=== PATIENT | male | born 1940 | race Caucasian/White ===

== ENCOUNTER 2017-06-18 06:20 | Emergency (ER) | payer OTHER ==
[~2017-06-18] VITALS: Ht 188 cm; Wt 71.8 kg
[~2017-06-18 06:20] MED LIST: /PANT40TA OR; ASPI81TA63 OR; BISA10SU2 RE; CALCCHW12 OR; FISH500C OR; FLAG500T PO; IMODIUM PO; LISI10TA4 OR; MAGNESIUM PO; MULTIVIT PO; RED YEAST RICE PO; VITAD1000T PO; VITAMIN B COMPLE1 OR
[2017-06-18] MEDS ORDERED: METO1TAB87 PO (06:37)
[2017-06-18] MEDS ORDERED: FLOM5CAP PO (06:37)
[2017-06-18] MEDS ORDERED: NAPR500T3 PO (06:56)
[2017-06-18 07:31] VITALS: BP 160/78
--- NOTE | 2017-06-18 07:52 | REP ---
Left shoulder three views : There is no fracture or dislocation. Mineralization and joint spaces are normal. There are no calcifications or foreign bodies. Impression: Negative whole left shoulder . Signed by Ken Schaefer MD 06/18/2017 07:43 A
== END 2017-06-18 07:32 | disposition home or self-care (01) ==
LOC: M ED 06:20
DX: S40.012A Contusion of left shoulder, initial encounter (principal); W10.9XXA Fall (on) (from) unspecified stairs and steps, initial encounter; Y92.099 Unspecified place in other non-institutional residence as the place of occurrence of the external cause; Y93.89 Activity, other specified; Y99.9 Unspecified external cause status; Z79.82 Long term (current) use of aspirin; Z79.899 Other long term (current) drug therapy; Z91.012 Allergy to eggs; F17.200 Nicotine dependence, unspecified, uncomplicated; E78.00 Pure hypercholesterolemia, unspecified; I10 Essential (primary) hypertension; K57.90 Diverticulosis of intestine, part unspecified, without perforation or abscess without bleeding; Z87.442 Personal history of urinary calculi; E11.9 Type 2 diabetes mellitus without complications; M79.9 Soft tissue disorder, unspecified

== ENCOUNTER → 2017-10-11 | Outpatient (REF) | payer OTHER | LOC: M LAB REF 15:21 | DX: L08.9 Local infection of the skin and subcutaneous tissue, unspecified (principal) | CPT/HCPCS: 87186 ==

== ENCOUNTER 2018-03-20 22:39 | Emergency (ER) | payer OTHER ==
[2018-03-20] MEDS: cloNIDine 0.2 MG TAB PO (23:20)
[2018-03-20 23:30] LABS: BASO # 0.1 10^3/uL (0.0-0.2); EOS # 0.1 10^3/uL (0.0-0.50); EOS % 2.2 % (0.0-3.0); HEMATOCRIT 40.3 % (42.0-52.0); HEMOGLOBIN 13.2 g/dl (13.5-17.5); IMMATURE GRANULOCYTE % 0.3 % (0-3.0); LYMPH # 1.2 10^3/uL (1.5-4.5); LYMPH % 19.7 % (24.0-44.0); MEAN CORPUSCULAR HEMOGLOBIN 29.8 pg (27.0-33.0); MEAN CORPUSCULAR HGB CONC 32.8 g/dl (32.0-36.5); MONO # 0.7 10^3/uL (0.0-0.8); MONO % 11.8 % (0.0-5.0); NEUTROPHILS # 3.9 10^3/uL (1.8-7.7); PLATELET COUNT, AUTOMATED 198 10^3/uL (150-450); RED BLOOD COUNT 4.43 10^6/uL (4.30-6.10); RED CELL DISTRIBUTION WIDTH 13.2 % (11.5-14.5)
[2018-03-20 23:57] LABS: ANION GAP 6 MEQ/L (8-16); BLOOD UREA NITROGEN 21 MG/DL (7-18); CALCIUM LEVEL 8.9 MG/DL (8.8-10.2); CARBON DIOXIDE LEVEL 31 MEQ/L (21-32); CHLORIDE LEVEL 106 MEQ/L (98-107); CREATININE FOR GFR 1.11 MG/DL (0.70-1.30); GLOMERULAR FILTRATION RATE > 60.0 (>42); GLUCOSE, FASTING 189 MG/DL (70-100); POTASSIUM SERUM 4.4 MEQ/L (3.5-5.1); SODIUM LEVEL 143 MEQ/L (136-145)
== END 2018-03-21 01:16 | disposition home or self-care (01) ==
LOC: M ED 22:39
DX: I10 Essential (primary) hypertension (principal); I71.4 Abdominal aortic aneurysm, without rupture; Z91.012 Allergy to eggs; Z79.82 Long term (current) use of aspirin; Z79.899 Other long term (current) drug therapy
CPT/HCPCS: 76775

== ENCOUNTER → 2018-03-21 | Outpatient (CLI) | payer OTHER | LOC: M RAD 15:50 | DX: I71.4 Abdominal aortic aneurysm, without rupture (principal) ==

== ENCOUNTER 2018-04-04 13:15 | Outpatient (RCR) | payer OTHER | END 2018-04-22 | disposition home or self-care (01) | LOC: M PT 13:15 → M OT 04-13 11:17 → M ST 04-20 12:45 → M OT 04-06 13:45 → M ST 04-20 12:45 → M OT 04-06 13:45 → M PT 13:15 → M OT 04-06 13:45 | DX: Z51.89 Encounter for other specified aftercare (principal); I63.9 Cerebral infarction, unspecified; I69.128 Other speech and language deficits following nontraumatic intracerebral hemorrhage | CPT/HCPCS: 97110 ==

== ENCOUNTER → 2018-04-04 | Outpatient (CLI) | payer OTHER ==
[2018-04-04 17:24] LABS: THYROGLOBULIN ANTIBODY 25.9 U/ML (<60.0); TOTAL T3 99.3 NG/DL (60.0-181.0)
[2018-04-04 17:29] LABS: FREE T4 1.07 NG/DL (0.76-1.46); THYROID STIMULATING HORMONE 0.636 uIU/ML (0.358-3.740)
[2018-04-04 22:12] LABS: THYROID PEROXIDASE ANTIBODY 29.8 U/ML (<60.0)
[2018-04-11 14:19] LABS: METANEPHRINE PLASMA 81 pg/mL (0-62); NORMETANEPHRINE PLASMA 176 pg/mL (0-145)
== END ==
LOC: M LAB 16:00
DX: E05.40 Thyrotoxicosis factitia without thyrotoxic crisis or storm (principal)
CPT/HCPCS: 84443

== ENCOUNTER 2018-04-26 12:49 | Outpatient (RCR) | payer OTHER | END 2018-05-22 | LOC: M ST 12:49 → M PT 05-05 12:35 → M ST 05-10 13:30 → M PT 05-12 13:36 → M ST 12:49 → M OT 05-03 12:13 → M PT 05-05 12:35 → M ST 05-10 13:30 → M PT 05-12 13:36 → M ST 12:49 → M OT 05-03 12:13 → M PT 05-05 12:35 | DX: Z51.89 Encounter for other specified aftercare (principal); I63.9 Cerebral infarction, unspecified | CPT/HCPCS: 97110 ==

== ENCOUNTER → 2018-05-03 | Outpatient (CLI) | payer OTHER | LOC: M ST 11:29 | DX: R13.10 Dysphagia, unspecified (principal) | CPT/HCPCS: 74230 ==

== ENCOUNTER 2018-05-24 09:34 | Outpatient (RCR) | payer OTHER | END 2018-06-22 | LOC: M PT 09:34 | DX: I63.9 Cerebral infarction, unspecified (principal) | CPT/HCPCS: 97110 ==

== ENCOUNTER 2018-06-14 17:14 | Emergency (ER) | payer OTHER ==
[2018-06-14 14:51] LABS: BASO # 0.1 10^3/uL (0.0-0.2); BASO % 0.7 % (0.0-1.0); EOS # 0.1 10^3/uL (0.0-0.50); EOS % 0.8 % (0.0-3.0); HEMATOCRIT 39.9 % (42.0-52.0); HEMOGLOBIN 13.3 g/dl (13.5-17.5); IMMATURE GRANULOCYTE % 0.5 % (0-3.0); LYMPH # 1.7 10^3/uL (1.5-4.5); LYMPH % 20.6 % (24.0-44.0); MEAN CORPUSCULAR HEMOGLOBIN 30.1 pg (27.0-33.0); MEAN CORPUSCULAR HGB CONC 33.3 g/dl (32.0-36.5); MEAN CORPUSCULAR VOLUME 90.3 fl (80.0-96.0); MONO # 0.8 10^3/uL (0.0-0.8); MONO % 8.9 % (0.0-5.0); NEUTROPHILS # 5.8 10^3/uL (1.8-7.7); NEUTROPHILS % 68.5 % (36.0-66.0); PLATELET COUNT, AUTOMATED 251 10^3/uL (150-450); RED BLOOD COUNT 4.42 10^6/uL (4.30-6.10); RED CELL DISTRIBUTION WIDTH 13.2 % (11.5-14.5); WHITE BLOOD COUNT 8.4 10^3/uL (4.0-10.0)
[2018-06-14 14:53] LABS: VENOUS BASE EXCESS -1.1 (-2.0-2.0); VENOUS O2 SATURATION 97.1 % (60.0-80.0); VENOUS PARTIAL PRESSURE O2 92.2 mmHg (30.0-50.0); VENOUS PH 7.412 UNITS (7.330-7.430); VENOUS STANDARD HCO3 23.5 MEQ/L; VENOUS TOTAL CO2 24.2 MEQ/L (24.0-28.0)
[2018-06-14 15:01] LABS: INR 1.02; PROTHROMBIN TIME 13.5 SECONDS (12.1-14.4)
[2018-06-14] MEDS: NS 1,000 ML IV ×2 (15:39→18:29)
[2018-06-14 15:50] LABS: BLOOD UREA NITROGEN 30 MG/DL (7-18)
[2018-06-14 15:51] LABS: ANION GAP 8 MEQ/L (8-16); CALCIUM LEVEL 8.9 MG/DL (8.8-10.2); CARBON DIOXIDE LEVEL 26 MEQ/L (21-32); CHLORIDE LEVEL 106 MEQ/L (98-107); CK-MB VALUE MASS 1.2 NG/ML (<3.6); CPK CREATINE PHOSPHOKINASE 66 U/L (39-308); CREATININE FOR GFR 1.15 MG/DL (0.70-1.30); GLOMERULAR FILTRATION RATE > 60.0 (>42); GLUCOSE, FASTING 156 MG/DL (70-100); MAGNESIUM LEVEL 2.1 MG/DL (1.8-2.4); MB/CK RELATIVE INDEX 1.81 (< OR =4); POTASSIUM SERUM 4.2 MEQ/L (3.5-5.1); SODIUM LEVEL 140 MEQ/L (136-145); TROPONIN I < 0.02 NG/ML (< 0.10)
[2018-06-17 14:12] LABS: BEDSIDE GLUCOSE 176 MG/DL (83-110)
== END 2018-06-14 20:17 | disposition home or self-care (01) ==
LOC: M ED 17:14
DX: I95.1 Orthostatic hypotension (principal); R73.03 Prediabetes; I10 Essential (primary) hypertension; Z86.79 Personal history of other diseases of the circulatory system; Z87.19 Personal history of other diseases of the digestive system; Z79.899 Other long term (current) drug therapy; Z91.012 Allergy to eggs
CPT/HCPCS: 71045

== ENCOUNTER → 2020-03-26 | Emergency (ER) | payer MEDICARE, OTHER ==
[~2020-03-26] MED LIST changes: -/PANT40TA OR; +FLOM0.4C39 PO; +METO1TAB87 PO; +NAPR-885 PO; +PROT1TAB2 OR
== END | disposition home or self-care (01) ==
LOC: M ED 20:57
DX: R33.9 Retention of urine, unspecified (principal); I10 Essential (primary) hypertension; Z86.73 Personal history of transient ischemic attack (TIA), and cerebral infarction without residual deficits; Z91.012 Allergy to eggs; Z79.02 Long term (current) use of antithrombotics/antiplatelets; Z79.899 Other long term (current) drug therapy

== ENCOUNTER 2022-04-25 17:39 | Inpatient (IN) | payer MEDICARE ==
[~2022-04-25] VITALS: Ht 188 cm; Wt 80.3 kg
[2022-04-25] MEDS ORDERED: CLOP75TA2 PO (17:53)
[2022-04-25] MEDS ORDERED: CITRTAB18 PO (17:53)
[2022-04-25] MEDS ORDERED: ISOVUE-370 76% 100ML VIAL As Ordered ONE (18:48)
[2022-04-25 19:07] LABS: BASO # 0.1 10^3/uL (0.0-0.2); BASO % 0.4 % (0.0-1.0); EOS % 0.1 % (0.0-3.0); HEMATOCRIT 44.7 % (42.0-52.0); LYMPH # 0.7 10^3/uL (1.5-5.0); LYMPH % 4.2 % (24.0-44.0); MEAN CORPUSCULAR HEMOGLOBIN 29.3 pg (27.0-33.0); MEAN CORPUSCULAR HGB CONC 33.6 g/dl (32.0-36.5); MEAN CORPUSCULAR VOLUME 87.3 fl (80.0-96.0); MONO # 1.2 10^3/uL (0.0-0.8); MONO % 7.3 % (2.0-8.0); NEUTROPHILS # 14.1 10^3/uL (1.5-8.5); NEUTROPHILS % 87.4 % (36.0-66.0); PLATELET COUNT, AUTOMATED 329 10^3/uL (150-450); RED BLOOD COUNT 5.12 10^6/uL (4.30-6.10); WHITE BLOOD COUNT 16.1 10^3/uL (4.0-10.0)
[2022-04-25] MEDS ORDERED: hydrALAZINE 20MG/ML 1ML VIAL (J0360 PER 20MG) IV STA (19:28)
[2022-04-25 19:35] LABS: INR 0.96; PARTIAL THROMBOPLASTIN TIME 33.9 SECONDS (25.9-37.0); PROTHROMBIN TIME 13.1 SECONDS (12.7-14.5)
[2022-04-25 19:52] LABS: ALBUMIN 4.2 GM/DL (3.2-5.2); BILIRUBIN,DIRECT 0.2 MG/DL (0.0-0.2); BILIRUBIN,TOTAL 0.6 MG/DL (0.2-1.0); TOTAL PROTEIN 7.2 GM/DL (6.4-8.2)
[2022-04-25] MEDS ORDERED: NS 500 ML IV ONE (20:05)
[2022-04-25] MEDS ORDERED: cefTRIAXone SOD 1 GM in D5W MINI-BAG PLUS 50 ML IV ONE (20:05)
[2022-04-25 21:04] LABS: RSV AMPLIFICATION NEGATIVE (NEGATIVE)
[2022-04-25] MEDS ORDERED: METO1TAB7 PO (21:11)
[2022-04-25] MEDS ORDERED: D 1010002 PO (21:11)
[2022-04-25] MEDS ORDERED: ASPI81TA26 PO (21:11)
[2022-04-25] MEDS ORDERED: HOME MED LIST COMPLETE! XX SCH (21:15)
[2022-04-25] MEDS ORDERED: ACETAMINOPHEN 325 MG TAB PO ONE (22:05)
[2022-04-25] MEDS ORDERED: ONDANSETRON 4MG 2ML VIAL As Ordered ONE (22:23)
[2022-04-25] MEDS ORDERED: MAALOX 30 ML SUSP *UDC PO PRN (22:30)
[2022-04-25] MEDS ORDERED: GLUCAGON INJ 1MG VIAL SC PRN (22:30)
[2022-04-25] MEDS ORDERED: SODIUM CHLORIDE 0.9% 1000ML IV SCH (22:30)
[2022-04-25] MEDS ORDERED: DEXTROSE 50% 50 ML SYRINGE IV PRN (22:30)
[2022-04-25] MEDS ORDERED: ONDANSETRON 4MG 2ML VIAL IV ONE (22:30)
[2022-04-25] MEDS ORDERED: GLUCOSE 4GM CHEW TABLET PO PRN (22:30)
[2022-04-25] MEDS ORDERED: ONDANSETRON 4MG 2ML VIAL IV PRN (22:45)
[2022-04-25] MEDS ORDERED: cefTRIAXone SOD 1 GM in D5W MINI-BAG PLUS 50 ML IV SCH (23:00)
[2022-04-26] VITALS (14 sets, daily range): BP systolic 113–138; BP diastolic 56–64; O2SAT 94–98
[2022-04-26] MEDS: INSULIN LISPRO (NovoLOG) PER UNIT SC SCH ×5 (01:59→20:29)
[2022-04-26] MEDS: NS 1,000 ML IV SCH ×2 (02:22→12:20)
[2022-04-26 08:10] LABS: ALBUMIN 2.9 GM/DL (3.2-5.2); BILIRUBIN,TOTAL 0.6 MG/DL (0.2-1.0); CALCIUM LEVEL 8.7 MG/DL (8.8-10.2); CREATININE FOR GFR 1.78 MG/DL (0.70-1.30); GLOMERULAR FILTRATION RATE 39.1 (>35); POTASSIUM SERUM 3.9 MEQ/L (3.5-5.1); TOTAL PROTEIN 5.3 GM/DL (6.4-8.2)
[2022-04-26] MEDS: METOPROLOL TART 25 MG TABLET PO SCH ×2 (12:00→20:29)
[2022-04-26 12:03] LABS: HEMATOCRIT 36.1 % (42.0-52.0); HEMOGLOBIN 12.2 g/dl (13.5-17.5); MEAN CORPUSCULAR HGB CONC 33.8 g/dl (32.0-36.5); MEAN CORPUSCULAR VOLUME 88.7 fl (80.0-96.0); PLATELET COUNT, AUTOMATED 222 10^3/uL (150-450); RED BLOOD COUNT 4.07 10^6/uL (4.30-6.10)
[2022-04-26] MEDS ORDERED: ISOVUE-300 61% 50ML VIAL As Ordered ONE (12:52)
[2022-04-26] MEDS ORDERED: propofoL 200 MG/20 ML VIAL As Ordered ONE (12:57)
[2022-04-26] MEDS ORDERED: dexameTHASONE 4 MG/ML 1ML VIAL (J1100 PER 1MG) As Ordered ONE (12:57)
[2022-04-26] MEDS ORDERED: fentaNYL 100 MCG/2 ML INJECTION As Ordered ONE (12:57)
[2022-04-26] MEDS ORDERED: LIDOCAINE 2% 100MG/5ML SDV (FOR ANES.) As Ordered ONE (12:57)
[2022-04-26] MEDS ORDERED: ONDANSETRON 4MG 2ML VIAL As Ordered ONE (12:57)
[2022-04-26] MEDS ORDERED: PHENYLephrine 500MCG 5ML (100MCG/ML) SYRINGE As Ordered ONE (13:03)
[2022-04-26] MEDS ORDERED: ACETAMINOPHEN 1000MG 100ML IV BTL (OFIRMEV) (J0131 PER 10MG) As Ordered ONE (13:31)
[2022-04-26] MEDS ORDERED: ONDANSETRON 4MG 2ML VIAL IV PRN (14:15)
[2022-04-26] MEDS ORDERED: PERCOCET 5MG/325MG TAB PO PRN (14:15)
[2022-04-26] MEDS ORDERED: fentaNYL 100 MCG/2 ML INJECTION IV PRN (14:15)
[2022-04-26] MEDS ORDERED: LR 1,000 ML IV SCH (14:15)
[2022-04-26] MEDS: cefTRIAXone SOD 2 GM in D5W MINI-BAG PLUS 50 ML IV SCH (20:29)
[2022-04-26] MEDS ORDERED: HEPARIN SOD (PORCINE) 5000UNITS/ML 1ML VIAL/SYRINGE SC SCH (21:00)
[2022-04-26] MEDS ORDERED: cefTRIAXone SOD 1 GM in D5W MINI-BAG PLUS 50 ML IV SCH (21:00)
[2022-04-26] MEDS ORDERED: cefTRIAXone SOD 2 GM in D5W MINI-BAG PLUS 50 ML IV SCH (21:00)
[2022-04-26] MEDS ORDERED: LR 1,000 ML IV ONE (22:20)
[2022-04-27] VITALS: BP 118/59
[2022-04-27] MEDS: ACETAMINOPHEN TAB 650MG DOSE (2X325MG) PO PRN ×2 (02:36→20:22)
[2022-04-27 04:00] VITALS: BP 102/44
[2022-04-27 05:13] LABS: HEMATOCRIT 33.2 % (42.0-52.0); HEMOGLOBIN 10.9 g/dl (13.5-17.5); MEAN CORPUSCULAR HEMOGLOBIN 29.3 pg (27.0-33.0); MEAN CORPUSCULAR HGB CONC 32.8 g/dl (32.0-36.5); MEAN CORPUSCULAR VOLUME 89.2 fl (80.0-96.0); PLATELET COUNT, AUTOMATED 202 10^3/uL (150-450); RED BLOOD COUNT 3.72 10^6/uL (4.30-6.10); WHITE BLOOD COUNT 19.1 10^3/uL (4.0-10.0)
[2022-04-27 05:51] LABS: CALCIUM LEVEL 8.1 MG/DL (8.8-10.2); CREATININE FOR GFR 2.3 MG/DL (0.70-1.30); GLOMERULAR FILTRATION RATE 29.1 (>35); POTASSIUM SERUM 4.5 MEQ/L (3.5-5.1)
[2022-04-27 08:00] VITALS: BP 143/66
[2022-04-27] MEDS: ASPIRIN 81MG ENTERIC TABLET PO SCH (08:57)
[2022-04-27] MEDS: INSULIN LISPRO (NovoLOG) PER UNIT SC SCH ×4 (08:57→20:17)
[2022-04-27] MEDS: METOPROLOL TART 25 MG TABLET PO SCH ×2 (08:58→20:22)
[2022-04-27] MEDS: CLOPIDOGREL 75 MG TAB PO SCH (11:25)
[2022-04-27] MEDS: NS 1,000 ML IV SCH ×2 (11:26→21:53)
[2022-04-27 12:00] VITALS: BP 132/70
[2022-04-27] MEDS: HEPARIN SOD (PORCINE) 5000UNITS/ML 1ML VIAL/SYRINGE SQ SCH ×2 (13:36→20:21)
[2022-04-27 16:00] VITALS: BP 131/63
[2022-04-27 20:00] VITALS: BP 160/77
[2022-04-27] MEDS: cefTRIAXone SOD 2 GM in D5W MINI-BAG PLUS 50 ML IV SCH (20:22)
[2022-04-28] VITALS: BP 155/74
[2022-04-28 04:12] LABS: BASO # 0.1 10^3/uL (0.0-0.2); BASO % 0.5 % (0.0-1.0); EOS % 0.2 % (0.0-3.0); HEMATOCRIT 33.1 % (42.0-52.0); HEMOGLOBIN 10.8 g/dl (13.5-17.5); LYMPH # 0.8 10^3/uL (1.5-5.0); LYMPH % 6.4 % (24.0-44.0); MEAN CORPUSCULAR HGB CONC 32.6 g/dl (32.0-36.5); MONO # 0.9 10^3/uL (0.0-0.8); MONO % 7.4 % (2.0-8.0); NEUTROPHILS # 10.6 10^3/uL (1.5-8.5); NEUTROPHILS % 84.9 % (36.0-66.0); PLATELET COUNT, AUTOMATED 191 10^3/uL (150-450); RED BLOOD COUNT 3.72 10^6/uL (4.30-6.10); WHITE BLOOD COUNT 12.5 10^3/uL (4.0-10.0)
[2022-04-28 04:21] VITALS: BP 163/80
[2022-04-28 04:43] LABS: CALCIUM LEVEL 8.4 MG/DL (8.8-10.2); CREATININE FOR GFR 2.31 MG/DL (0.70-1.30); POTASSIUM SERUM 4.6 MEQ/L (3.5-5.1)
[2022-04-28] MEDS: HEPARIN SOD (PORCINE) 5000UNITS/ML 1ML VIAL/SYRINGE SQ SCH ×2 (05:27→14:00)
[2022-04-28] MEDS: NS 1,000 ML IV SCH ×2 (08:11→18:25)
[2022-04-28] MEDS ORDERED: TAMSULOSIN 0.4 MG CAP PO SCH (09:00)
[2022-04-28] MEDS ORDERED: amLODIPine 5 MG TAB PO SCH (09:00)
[2022-04-28] MEDS: ASPIRIN 81MG ENTERIC TABLET PO SCH (09:39)
[2022-04-28] MEDS: CLOPIDOGREL 75 MG TAB PO SCH (09:40)
[2022-04-28] MEDS: METOPROLOL TART 25 MG TABLET PO SCH ×2 (09:40→20:31)
[2022-04-28] MEDS: INSULIN LISPRO (NovoLOG) PER UNIT SC SCH ×4 (09:40→20:12)
[2022-04-28] MEDS ORDERED: amLODIPine 5 MG TAB PO ONE (11:00)
[2022-04-28] MEDS: HYDROMORPHONE HCL 0.5 MG/ 0.5 ML SYRINGE (J1170 PER 1) IV PRN (12:45)
[2022-04-28 16:00] VITALS: BP 148/64
[2022-04-28 17:28] LABS: CREATININE,RANDOM URINE 79.4 MG/DL
[2022-04-28] MEDS: TAMSULOSIN 0.4 MG CAP PO SCH (17:30)
[2022-04-28 19:21] VITALS: BP 167/79
[2022-04-28] MEDS: cefTRIAXone SOD 2 GM in D5W MINI-BAG PLUS 50 ML IV SCH (20:31)
[2022-04-29 00:30] VITALS: BP 154/73
[2022-04-29] MEDS: NS 1,000 ML IV SCH ×3 (03:55→23:37)
[2022-04-29 04:08] VITALS: BP 156/78
[2022-04-29 04:52] LABS: BASO # 0.1 10^3/uL (0.0-0.2); BASO % 0.5 % (0.0-1.0); EOS % 0.2 % (0.0-3.0); HEMATOCRIT 32.4 % (42.0-52.0); HEMOGLOBIN 10.8 g/dl (13.5-17.5); LYMPH # 0.8 10^3/uL (1.5-5.0); LYMPH % 8.4 % (24.0-44.0); MEAN CORPUSCULAR HEMOGLOBIN 29.5 pg (27.0-33.0); MEAN CORPUSCULAR HGB CONC 33.3 g/dl (32.0-36.5); MEAN CORPUSCULAR VOLUME 88.5 fl (80.0-96.0); MONO # 0.9 10^3/uL (0.0-0.8); NEUTROPHILS # 8.1 10^3/uL (1.5-8.5); NEUTROPHILS % 81.1 % (36.0-66.0); PLATELET COUNT, AUTOMATED 207 10^3/uL (150-450); RED BLOOD COUNT 3.66 10^6/uL (4.30-6.10)
[2022-04-29] MEDS: HYDROMORPHONE HCL 0.5 MG/ 0.5 ML SYRINGE (J1170 PER 1) IV PRN (05:16)
[2022-04-29 05:21] LABS: CALCIUM LEVEL 8.3 MG/DL (8.8-10.2); CREATININE FOR GFR 1.67 MG/DL (0.70-1.30); GLOMERULAR FILTRATION RATE 42.1 (>35); POTASSIUM SERUM 4.4 MEQ/L (3.5-5.1)
[2022-04-29 08:00] VITALS: BP 147/70
[2022-04-29 08:16] LABS: HEMOGLOBIN A1c 8.3 %
[2022-04-29] MEDS: ASPIRIN 81MG ENTERIC TABLET PO SCH (08:23)
[2022-04-29] MEDS: TAMSULOSIN 0.4 MG CAP PO SCH (08:23)
[2022-04-29] MEDS: INSULIN LISPRO (NovoLOG) PER UNIT SC SCH ×4 (08:23→20:09)
[2022-04-29] MEDS: CLOPIDOGREL 75 MG TAB PO SCH (08:24)
[2022-04-29] MEDS: METOPROLOL TART 25 MG TABLET PO SCH ×2 (08:26→20:09)
[2022-04-29] MEDS: amLODIPine 5 MG TAB PO SCH (08:26)
[2022-04-29] MEDS ORDERED: ALCOPAD25 TOP (11:39)
[2022-04-29] MEDS ORDERED: GLUC1TES2 XX (11:39)
[2022-04-29] MEDS ORDERED: LANC30MI XX (11:39)
[2022-04-29] MEDS ORDERED: CEFD300C41 PO (11:39)
[2022-04-29] MEDS ORDERED: BLOOKIT21 XX (11:39)
[2022-04-29] MEDS ORDERED: PEN1MIS21 SC (11:39)
[2022-04-29] MEDS ORDERED: FLOM0.4C39 PO (11:39)
[2022-04-29] MEDS ORDERED: LANTINJ4 SC (11:39)
[2022-04-29] MEDS ORDERED: AMLO1TAB25 PO (11:39)
[2022-04-29 12:27] VITALS: BP 159/74
[2022-04-29] MEDS: ACETAMINOPHEN TAB 650MG DOSE (2X325MG) PO PRN ×2 (12:44→20:08)
[2022-04-29 16:31] VITALS: BP 140/67
[2022-04-29 20:00] VITALS: BP 142/63
[2022-04-29] MEDS: cefTRIAXone SOD 2 GM in D5W MINI-BAG PLUS 50 ML IV SCH (20:08)
[2022-04-29] MEDS ORDERED: VANCOMYCIN HCL 1,000 MG, VIAL MATE ADAPTER 1 EACH in NS 250 ML IV SCH (21:25)
[2022-04-29] MEDS: PIPERACILLIN/TAZOBACTAM SOD 2.25 GM in D5W MINI-BAG PLUS 50 ML IV SCH (23:37)
[2022-04-30] MEDS: ACETAMINOPHEN TAB 650MG DOSE (2X325MG) PO PRN ×3 (00:28→12:32)
[2022-04-30] MEDS ORDERED: VANCOMYCIN HCL 750 MG, VIAL MATE ADAPTER 1 EACH in D5W 250 ML IV ONE ×4 (01:00)
[2022-04-30 04:00] VITALS: BP 137/61
[2022-04-30] MEDS: PIPERACILLIN/TAZOBACTAM SOD 2.25 GM in D5W MINI-BAG PLUS 50 ML IV SCH ×4 (05:02→23:05)
[2022-04-30 06:06] LABS: BASO # 0.1 10^3/uL (0.0-0.2); BASO % 0.9 % (0.0-1.0); EOS # 0.3 10^3/uL (0.0-0.5); EOS % 3.1 % (0.0-3.0); HEMATOCRIT 29.3 % (42.0-52.0); LYMPH # 0.9 10^3/uL (1.5-5.0); LYMPH % 10.3 % (24.0-44.0); MEAN CORPUSCULAR HEMOGLOBIN 29.3 pg (27.0-33.0); MEAN CORPUSCULAR HGB CONC 34.1 g/dl (32.0-36.5); MEAN CORPUSCULAR VOLUME 85.9 fl (80.0-96.0); MONO # 1.1 10^3/uL (0.0-0.8); MONO % 12.1 % (2.0-8.0); NEUTROPHILS # 6.5 10^3/uL (1.5-8.5); PLATELET COUNT, AUTOMATED 194 10^3/uL (150-450); RED BLOOD COUNT 3.41 10^6/uL (4.30-6.10)
[2022-04-30] MEDS: INSULIN LISPRO (NovoLOG) PER UNIT SC SCH ×4 (07:39→20:18)
[2022-04-30 07:55] LABS: CREATININE FOR GFR 1.31 MG/DL (0.70-1.30); GLOMERULAR FILTRATION RATE 55.8 (>35); POTASSIUM SERUM 3.6 MEQ/L (3.5-5.1)
[2022-04-30 08:00] VITALS: BP 112/70
[2022-04-30 08:03] VITALS: BP 128/58
[2022-04-30] MEDS: METOPROLOL TART 25 MG TABLET PO SCH ×2 (09:01→20:18)
[2022-04-30] MEDS: TAMSULOSIN 0.4 MG CAP PO SCH (09:01)
[2022-04-30] MEDS: ASPIRIN 81MG ENTERIC TABLET PO SCH (09:01)
[2022-04-30] MEDS: CLOPIDOGREL 75 MG TAB PO SCH (09:01)
[2022-04-30] MEDS: amLODIPine 5 MG TAB PO SCH (09:02)
[2022-04-30] MEDS ORDERED: VANCOMYCIN HCL 1,000 MG, VIAL MATE ADAPTER 1 EACH in D5W 250 ML IV SCH (12:00)
[2022-04-30] MEDS: HYDROMORPHONE HCL 0.5 MG/ 0.5 ML SYRINGE (J1170 PER 1) IV PRN (13:55)
[2022-04-30 14:55] VITALS: BP 134/70
[2022-04-30 19:47] VITALS: BP 142/67
[2022-05-01 04:00] VITALS: BP 160/71
[2022-05-01] MEDS: PIPERACILLIN/TAZOBACTAM SOD 2.25 GM in D5W MINI-BAG PLUS 50 ML IV SCH (05:00)
[2022-05-01 07:58] LABS: BASO # 0.1 10^3/uL (0.0-0.2); BASO % 0.6 % (0.0-1.0); EOS # 0.4 10^3/uL (0.0-0.5); EOS % 4.5 % (0.0-3.0); LYMPH # 1.2 10^3/uL (1.5-5.0); LYMPH % 13.1 % (24.0-44.0); MEAN CORPUSCULAR HEMOGLOBIN 28.5 pg (27.0-33.0); MEAN CORPUSCULAR HGB CONC 33.3 g/dl (32.0-36.5); MEAN CORPUSCULAR VOLUME 85.5 fl (80.0-96.0); MONO # 0.8 10^3/uL (0.0-0.8); MONO % 9.3 % (2.0-8.0); NEUTROPHILS # 6.2 10^3/uL (1.5-8.5); NEUTROPHILS % 69.4 % (36.0-66.0); PLATELET COUNT, AUTOMATED 262 10^3/uL (150-450); RED BLOOD COUNT 3.86 10^6/uL (4.30-6.10); WHITE BLOOD COUNT 8.9 10^3/uL (4.0-10.0)
[2022-05-01 08:00] VITALS: BP 150/80
[2022-05-01 08:27] LABS: BLOOD UREA NITROGEN 16 MG/DL (7-18); CALCIUM LEVEL 8.3 MG/DL (8.8-10.2); CARBON DIOXIDE LEVEL 25 MEQ/L (21-32); CHLORIDE LEVEL 106 MEQ/L (98-107); CREATININE FOR GFR 1.08 MG/DL (0.70-1.30); GLOMERULAR FILTRATION RATE > 60.0 (>35); GLUCOSE, FASTING 144 MG/DL (70-100); POTASSIUM SERUM 3.7 MEQ/L (3.5-5.1); SODIUM LEVEL 137 MEQ/L (136-145)
[2022-05-01] MEDS: ASPIRIN 81MG ENTERIC TABLET PO SCH (09:01)
[2022-05-01 09:02] VITALS: BP 160/71
[2022-05-01] MEDS: amLODIPine 5 MG TAB PO SCH (09:02)
[2022-05-01] MEDS: TAMSULOSIN 0.4 MG CAP PO SCH (09:02)
[2022-05-01] MEDS: METOPROLOL TART 25 MG TABLET PO SCH (09:02)
[2022-05-01] MEDS: INSULIN LISPRO (NovoLOG) PER UNIT SC SCH (09:02)
[2022-05-01] MEDS: CLOPIDOGREL 75 MG TAB PO SCH (09:02)
[2022-05-01] MEDS ORDERED: OXYB5TAB10 PO (11:40)
== END 2022-05-01 14:49 | disposition home or self-care (01) | DRG 871 ==
LOC: M ED 22:56 → M ED INP 23:23 → M PCU 04-26 01:54
PROVIDERS: ADMIT Internal Medicine; ATTEND Family Medicine
PROC: 0T777DZ Dilation of Left Ureter with Intraluminal Device, Via Natural or Artificial Opening (ICD-10-PCS; 2022-04-26)
PROC: 0T7C7ZZ Dilation of Bladder Neck, Via Natural or Artificial Opening (ICD-10-PCS; principal; 2022-04-26 13:00)
DX: A41.9 Sepsis, unspecified organism (principal); N17.0 Acute kidney failure with tubular necrosis; Q24.0 Dextrocardia; N10 Acute pyelonephritis; N13.2 Hydronephrosis with renal and ureteral calculous obstruction; N32.0 Bladder-neck obstruction; I16.0 Hypertensive urgency; E11.9 Type 2 diabetes mellitus without complications; I10 Essential (primary) hypertension; Z79.82 Long term (current) use of aspirin; Z79.899 Other long term (current) drug therapy; Z86.73 Personal history of transient ischemic attack (TIA), and cerebral infarction without residual deficits; E55.9 Vitamin D deficiency, unspecified; K80.20 Calculus of gallbladder without cholecystitis without obstruction; I71.4 Abdominal aortic aneurysm, without rupture; K40.90 Unilateral inguinal hernia, without obstruction or gangrene, not specified as recurrent

== ENCOUNTER → 2022-05-04 | Outpatient (REF) | payer MEDICARE ==
[~2022-05-04] MED LIST changes: +ALCOPAD25 TOP; +AMLO1TAB25 PO; +ASPI81TA26 PO; +BLOOKIT21 XX; +CEFD300C41 PO; +CITRTAB18 PO; +CLOP75TA2 PO; +D 1010002 PO; +GLUC1TES2 XX; +LANC30MI XX; +LANTINJ4 SC; +METO1TAB7 PO; +OXYB5TAB10 PO; +PEN1MIS21 SC
[2022-05-04 14:24] LABS: HEMATOCRIT 37.4 % (42.0-52.0); MEAN CORPUSCULAR HEMOGLOBIN 28.5 pg (27.0-33.0); MEAN CORPUSCULAR HGB CONC 32.1 g/dl (32.0-36.5); MEAN CORPUSCULAR VOLUME 88.8 fl (80.0-96.0); PLATELET COUNT, AUTOMATED 415 10^3/uL (150-450); RED BLOOD COUNT 4.21 10^6/uL (4.30-6.10); WHITE BLOOD COUNT 8.5 10^3/uL (4.0-10.0)
== END ==
LOC: M LAB REF 13:37
PROVIDERS: ATTEND Internal Medicine
DX: D64.9 Anemia, unspecified (principal); N18.9 Chronic kidney disease, unspecified

== ENCOUNTER 2022-05-13 09:01 | Inpatient (IN) | payer MEDICARE ==
[~2022-05-13] VITALS: Ht 188 cm; Wt 69.3 kg
[2022-05-13] MEDS ORDERED: ACETAMINOPHEN TAB 650MG DOSE (2X325MG) PO ONE (09:30)
[2022-05-13 09:33] LABS: BASO # 0.1 10^3/uL (0.0-0.2); BASO % 0.3 % (0.0-1.0); HEMATOCRIT 36.9 % (42.0-52.0); LYMPH # 0.7 10^3/uL (1.5-5.0); MEAN CORPUSCULAR HGB CONC 32.5 g/dl (32.0-36.5); MEAN CORPUSCULAR VOLUME 89.1 fl (80.0-96.0); MONO # 1.1 10^3/uL (0.0-0.8); MONO % 4.7 % (2.0-8.0); NEUTROPHILS # 21.1 10^3/uL (1.5-8.5); NEUTROPHILS % 91.2 % (36.0-66.0); PLATELET COUNT, AUTOMATED 388 10^3/uL (150-450); RED BLOOD COUNT 4.14 10^6/uL (4.30-6.10); WHITE BLOOD COUNT 23.1 10^3/uL (4.0-10.0)
[2022-05-13 10:12] LABS: ALBUMIN 3.3 GM/DL (3.2-5.2); BILIRUBIN,TOTAL 1.2 MG/DL (0.2-1.0); CALCIUM LEVEL 9.6 MG/DL (8.8-10.2); CREATININE FOR GFR 1.33 MG/DL (0.70-1.30); GLOMERULAR FILTRATION RATE 54.8 (>35); POTASSIUM SERUM 4.5 MEQ/L (3.5-5.1); TOTAL PROTEIN 6.5 GM/DL (6.4-8.2)
[2022-05-13] MEDS ORDERED: NS 2,070 ML in IV 1 EA IV ONE (10:20)
[2022-05-13] MEDS ORDERED: PIPERACILLIN/TAZOBACTAM SOD 4.5 GM in D5W MINI-BAG PLUS 50 ML IV ONE (10:20)
[2022-05-13] MEDS ORDERED: CALC-211 PO (11:24)
[2022-05-13] MEDS ORDERED: AMLO1TAB25 PO (11:24)
[2022-05-13] MEDS ORDERED: FLOM0.4C39 PO (11:24)
[2022-05-13] MEDS ORDERED: OXYB5TAB10 PO (11:24)
[2022-05-13] MEDS ORDERED: BACITAB PO (11:24)
[2022-05-13] MEDS ORDERED: LANTINJ4 SC (11:24)
[2022-05-13] MEDS ORDERED: HOME MED LIST COMPLETE! XX SCH (11:25)
[2022-05-13] MEDS: NS 1,000 ML IV SCH ×2 (13:49→21:43)
[2022-05-13] MEDS: TAMSULOSIN 0.4 MG CAP PO SCH (17:50)
[2022-05-13] MEDS: LACTOBACILLUS ACIDOPHILUS CAP (BACID) PO SCH (17:50)
[2022-05-13] MEDS: ASPIRIN 81MG ENTERIC TABLET PO SCH (17:50)
[2022-05-13] MEDS: oxyBUTYnin 5 MG TAB PO SCH (17:50)
[2022-05-13 21:22] VITALS: BP 124/58
[2022-05-13] MEDS: HEPARIN SOD (PORCINE) 5000UNITS/ML 1ML VIAL/SYRINGE SC SCH (21:44)
[2022-05-13] MEDS: CLOPIDOGREL 75 MG TAB PO SCH (21:44)
[2022-05-13] MEDS: METOPROLOL SUCC (TopROL XL) 50MG **XL** TAB PO SCH (21:44)
[2022-05-14] VITALS (7 sets, daily range): BP systolic 101–130; BP diastolic 51–67
[2022-05-14] MEDS ORDERED: ACETAMINOPHEN TAB 650MG DOSE (2X325MG) PO PRN (02:05)
[2022-05-14] MEDS: HEPARIN SOD (PORCINE) 5000UNITS/ML 1ML VIAL/SYRINGE SC SCH ×3 (05:56→21:56)
[2022-05-14 05:57] LABS: HEMATOCRIT 29.9 % (42.0-52.0); HEMOGLOBIN 9.8 g/dl (13.5-17.5); MEAN CORPUSCULAR HEMOGLOBIN 29.5 pg (27.0-33.0); MEAN CORPUSCULAR HGB CONC 32.8 g/dl (32.0-36.5); MEAN CORPUSCULAR VOLUME 90.1 fl (80.0-96.0); PLATELET COUNT, AUTOMATED 283 10^3/uL (150-450); RED BLOOD COUNT 3.32 10^6/uL (4.30-6.10); WHITE BLOOD COUNT 18.7 10^3/uL (4.0-10.0)
[2022-05-14 06:21] LABS: CALCIUM LEVEL 8.1 MG/DL (8.8-10.2); CREATININE FOR GFR 1.32 MG/DL (0.70-1.30); GLOMERULAR FILTRATION RATE 55.3 (>35); MAGNESIUM LEVEL 1.9 MG/DL (1.8-2.4); PHOSPHORUS LEVEL 2.4 MG/DL (2.5-4.9); POTASSIUM SERUM 4.4 MEQ/L (3.5-5.1)
[2022-05-14] MEDS: TAMSULOSIN 0.4 MG CAP PO SCH (08:25)
[2022-05-14] MEDS: ASPIRIN 81MG ENTERIC TABLET PO SCH (08:25)
[2022-05-14] MEDS: LACTOBACILLUS ACIDOPHILUS CAP (BACID) PO SCH (08:25)
[2022-05-14] MEDS: oxyBUTYnin 5 MG TAB PO SCH (08:25)
[2022-05-14] MEDS: METOPROLOL SUCC (TopROL XL) 50MG **XL** TAB PO SCH ×2 (08:26→20:56)
[2022-05-14] MEDS: LEVEMIR (INSULIN DETEMIR) 1 UNITS/0.01ML SC SCH (08:26)
[2022-05-14] MEDS: NS 1,000 ML IV SCH (08:27)
[2022-05-14] MEDS: PIPERACILLIN/TAZOBACTAM SOD 3.375 GM in D5W MINI-BAG PLUS 50 ML IV SCH ×3 (09:19→20:56)
[2022-05-14] MEDS: K-PHOS ORIGINAL (POT.ACID PHOSPHATE) 500MG TAB PO SCH ×2 (10:21→20:54)
[2022-05-14] MEDS ORDERED: GLUCAGON INJ 1MG VIAL SC PRN (13:20)
[2022-05-14] MEDS ORDERED: GLUCOSE 4GM CHEW TABLET PO PRN (13:20)
[2022-05-14] MEDS ORDERED: DEXTROSE 50% 50 ML SYRINGE IV PRN (13:20)
[2022-05-14] MEDS: INSULIN LISPRO (NovoLOG) PER UNIT SC SCH (17:15)
[2022-05-14] MEDS: CLOPIDOGREL 75 MG TAB PO SCH (20:54)
[2022-05-14] MEDS ORDERED: INSULIN LISPRO (NovoLOG) PER UNIT SC SCH (21:00)
[2022-05-15 00:36] VITALS: BP 117/61
[2022-05-15] MEDS: PIPERACILLIN/TAZOBACTAM SOD 3.375 GM in D5W MINI-BAG PLUS 50 ML IV SCH ×2 (03:46→08:28)
[2022-05-15 04:00] VITALS: BP 127/60
[2022-05-15] MEDS: HEPARIN SOD (PORCINE) 5000UNITS/ML 1ML VIAL/SYRINGE SC SCH (05:00)
[2022-05-15 07:13] LABS: BASO # 0.1 10^3/uL (0.0-0.2); BASO % 0.6 % (0.0-1.0); EOS # 0.2 10^3/uL (0.0-0.5); EOS % 1.8 % (0.0-3.0); HEMATOCRIT 29.9 % (42.0-52.0); HEMOGLOBIN 9.9 g/dl (13.5-17.5); LYMPH # 1.2 10^3/uL (1.5-5.0); LYMPH % 9.6 % (24.0-44.0); MEAN CORPUSCULAR HEMOGLOBIN 29.7 pg (27.0-33.0); MEAN CORPUSCULAR HGB CONC 33.1 g/dl (32.0-36.5); MEAN CORPUSCULAR VOLUME 89.8 fl (80.0-96.0); MONO # 0.9 10^3/uL (0.0-0.8); MONO % 7.3 % (2.0-8.0); NEUTROPHILS # 9.6 10^3/uL (1.5-8.5); NEUTROPHILS % 80.1 % (36.0-66.0); PLATELET COUNT, AUTOMATED 299 10^3/uL (150-450); RED BLOOD COUNT 3.33 10^6/uL (4.30-6.10); WHITE BLOOD COUNT 11.9 10^3/uL (4.0-10.0)
[2022-05-15] MEDS: INSULIN LISPRO (NovoLOG) PER UNIT SC SCH (07:30)
[2022-05-15 07:43] LABS: CALCIUM LEVEL 8.4 MG/DL (8.8-10.2); CREATININE FOR GFR 1.32 MG/DL (0.70-1.30); GLOMERULAR FILTRATION RATE 55.3 (>35); PHOSPHORUS LEVEL 2.6 MG/DL (2.5-4.9); POTASSIUM SERUM 3.8 MEQ/L (3.5-5.1)
[2022-05-15 08:00] VITALS: BP 117/60
[2022-05-15] MEDS: LEVEMIR (INSULIN DETEMIR) 1 UNITS/0.01ML SC SCH (08:27)
[2022-05-15] MEDS: LACTOBACILLUS ACIDOPHILUS CAP (BACID) PO SCH (08:27)
[2022-05-15] MEDS: oxyBUTYnin 5 MG TAB PO SCH (08:27)
[2022-05-15] MEDS: TAMSULOSIN 0.4 MG CAP PO SCH (08:27)
[2022-05-15] MEDS: METOPROLOL SUCC (TopROL XL) 50MG **XL** TAB PO SCH ×2 (08:27→09:00)
[2022-05-15] MEDS: ASPIRIN 81MG ENTERIC TABLET PO SCH (08:28)
[2022-05-15] MEDS ORDERED: LEVO1TAB40 PO (10:21)
== END 2022-05-15 13:05 | disposition home or self-care (01) | DRG 698 ==
LOC: EDBD 09:01 → M ED 09:01 → M ED INP 12:53 → M PCU 21:27
PROVIDERS: ADMIT Internal Medicine; ATTEND Internal Medicine
DX: T83.511A Infection and inflammatory reaction due to indwelling urethral catheter, initial encounter (principal); A41.9 Sepsis, unspecified organism; N39.0 Urinary tract infection, site not specified; E11.22 Type 2 diabetes mellitus with diabetic chronic kidney disease; I12.9 Hypertensive chronic kidney disease with stage 1 through stage 4 chronic kidney disease, or unspecified chronic kidney disease; N18.9 Chronic kidney disease, unspecified; R33.9 Retention of urine, unspecified; D64.9 Anemia, unspecified; Z91.012 Allergy to eggs; Z79.82 Long term (current) use of aspirin; Z79.899 Other long term (current) drug therapy; Z79.4 Long term (current) use of insulin; Y84.6 Urinary catheterization as the cause of abnormal reaction of the patient, or of later complication, without mention of misadventure at the time of the procedure

== ENCOUNTER → 2022-06-18 | Outpatient (CLI) | payer MEDICARE ==
[~2022-06-18] MED LIST changes: +BACITAB PO; +CALC-211 PO; +CALC600T18 PO; +KP F1200 PO; +LEVO1TAB40 PO; +REDCAP3 PO; +VITMTA PO; +[UNRECOGNIZED DRUG - CODE] PO
== END ==
LOC: M LABSMTC 09:16
PROVIDERS: ATTEND Anesthesiology
DX: Z01.812 Encounter for preprocedural laboratory examination (principal); Z11.52 Encounter for screening for COVID-19

== ENCOUNTER 2022-06-22 06:51 | Day surgery (SDC) | payer MEDICARE ==
[~2022-06-22] VITALS: Ht 188 cm; Wt 68.7 kg
[2022-06-22] MEDS ORDERED: propofoL 200 MG/20 ML VIAL As Ordered ONE (07:17)
[2022-06-22] MEDS ORDERED: dexameTHASONE 4 MG/ML 1ML VIAL (J1100 PER 1MG) As Ordered ONE (07:17)
[2022-06-22] MEDS ORDERED: MIDAZOLAM INJ 2MG/2ML VIAL (J2250 PER 1MG) As Ordered ONE (07:17)
[2022-06-22] MEDS ORDERED: ONDANSETRON 4MG 2ML VIAL As Ordered ONE (07:17)
[2022-06-22] MEDS ORDERED: fentaNYL 100 MCG/2 ML INJECTION As Ordered ONE (07:17)
[2022-06-22] MEDS ORDERED: LIDOCAINE 2% 100MG/5ML SDV (FOR ANES.) As Ordered ONE (07:17)
[2022-06-22] MEDS ORDERED: ceFAZolin SOD 2 GM in IV 1 EA IV ONE (07:25)
[2022-06-22] MEDS ORDERED: LR 1,000 ML IV SCH ×2 (07:40→09:45)
[2022-06-22] MEDS ORDERED: ISOVUE-300 61% 50ML VIAL As Ordered ONE (08:44)
[2022-06-22] MEDS ORDERED: ACETAMINOPHEN 1000MG 100ML IV BTL (OFIRMEV) (J0131 PER 10MG) As Ordered ONE (09:14)
[2022-06-22] MEDS ORDERED: ePHEDrine SULFATE 25 MG/5 ML(5MG/ML) SYRINGE As Ordered ONE (09:20)
[2022-06-22] MEDS ORDERED: ONDANSETRON 4MG 2ML VIAL IV PRN (09:45)
[2022-06-22] MEDS ORDERED: fentaNYL 100 MCG/2 ML INJECTION IV PRN (09:45)
[2022-06-22] MEDS ORDERED: HYDROMORPHONE HCL 0.5 MG/ 0.5 ML SYRINGE (J1170 PER 1) IV PRN (09:45)
[2022-06-22] MEDS ORDERED: oxyCODONE 5MG TAB PO PRN (09:45)
[2022-06-22] MEDS ORDERED: MACR100C43 PO (09:48)
[2022-06-22 10:55] VITALS: BP 148/70
[2022-06-23] MEDS ORDERED: CLOP75TA99 PO (02:37)
[2022-06-23] MEDS ORDERED: FLUC10TA PO (06:38)
[2022-06-23] MEDS ORDERED: CLOP75TA2 PO (06:38)
[2022-06-23] MEDS ORDERED: MACR100C43 PO (06:38)
[2022-06-26 15:08] LABS: Ca Ox Monohydrate 100 % (.); Size 4x3 mm (.)
== END 2022-06-22 13:00 | disposition home or self-care (01) ==
LOC: M SDC 06:51
PROVIDERS: ATTEND Urology
DX: N20.1 Calculus of ureter (principal); I10 Essential (primary) hypertension; E11.9 Type 2 diabetes mellitus without complications; K57.90 Diverticulosis of intestine, part unspecified, without perforation or abscess without bleeding; K21.9 Gastro-esophageal reflux disease without esophagitis; Z79.02 Long term (current) use of antithrombotics/antiplatelets; Z79.899 Other long term (current) drug therapy; Z91.012 Allergy to eggs; Z86.73 Personal history of transient ischemic attack (TIA), and cerebral infarction without residual deficits; Z79.4 Long term (current) use of insulin
CPT/HCPCS: 52332; 52352; 76000; 82365; 87088; 87186; C1769; C2617; J0131; J0690; J1100; J2405; J3010; Q9967

== ENCOUNTER 2022-06-23 01:49 | Inpatient (IN) | payer MEDICARE ==
[~2022-06-23] VITALS: Ht 185.4 cm; Wt 69.0 kg
[~2022-06-23 01:49] MED LIST changes: +MACR100C43 PO
[2022-06-23] MEDS ORDERED: CLOP75TA99 PO (02:37)
[2022-06-23 03:17] LABS: BASO # 0.1 10^3/uL (0.0-0.2); BASO % 0.2 % (0.0-1.0); HEMATOCRIT 34.2 % (42.0-52.0); HEMOGLOBIN 11.3 g/dl (13.5-17.5); LYMPH # 0.5 10^3/uL (1.5-5.0); LYMPH % 1.5 % (24.0-44.0); MEAN CORPUSCULAR HEMOGLOBIN 29.2 pg (27.0-33.0); MEAN CORPUSCULAR VOLUME 88.4 fl (80.0-96.0); MONO % 8.1 % (2.0-8.0); NEUTROPHILS # 26.1 10^3/uL (1.5-8.5); NEUTROPHILS % 89.3 % (36.0-66.0); PLATELET COUNT, AUTOMATED 259 10^3/uL (150-450); RED BLOOD COUNT 3.87 10^6/uL (4.30-6.10); WHITE BLOOD COUNT 29.2 10^3/uL (4.0-10.0)
[2022-06-23 03:55] LABS: MONO # 2.4 10^3/uL (0.0-0.8)
[2022-06-23 03:59] LABS: ALBUMIN 3.2 GM/DL (3.2-5.2); BILIRUBIN,TOTAL 0.6 MG/DL (0.2-1.0); CALCIUM LEVEL 9.5 MG/DL (8.8-10.2); CK-MB VALUE MASS < 1.0 NG/ML (<3.6); CPK CREATINE PHOSPHOKINASE 110 U/L (39-308); CREATININE FOR GFR 1.38 MG/DL (0.70-1.30); GLOMERULAR FILTRATION RATE 52.4 (>35); MAGNESIUM LEVEL 1.8 MG/DL (1.8-2.4); MB/CK RELATIVE INDEX 0.91 (< OR =4); POTASSIUM SERUM 3.8 MEQ/L (3.5-5.1); TOTAL PROTEIN 6.2 GM/DL (6.4-8.2)
[2022-06-23] MEDS ORDERED: cefTRIAXone SOD 1 GM in D5W MINI-BAG PLUS 50 ML IV ONE (05:40)
[2022-06-23] MEDS ORDERED: KETOROLAC 30 MG/ML 1ML VIAL IV ONE (06:00)
[2022-06-23] MEDS ORDERED: CLOP75TA2 PO (06:38)
[2022-06-23] MEDS ORDERED: MACR100C43 PO (06:38)
[2022-06-23] MEDS ORDERED: FLUC10TA PO (06:38)
[2022-06-23] MEDS ORDERED: HOME MED LIST COMPLETE! XX SCH (06:40)
[2022-06-23] MEDS ORDERED: LR 1,000 ML IV ONE ×2 (09:45→10:30)
[2022-06-23 10:15] LABS: HEMATOCRIT 35.6 % (42.0-52.0); HEMOGLOBIN 11.6 g/dl (13.5-17.5); MEAN CORPUSCULAR HEMOGLOBIN 29.4 pg (27.0-33.0); MEAN CORPUSCULAR HGB CONC 32.6 g/dl (32.0-36.5); MEAN CORPUSCULAR VOLUME 90.1 fl (80.0-96.0); PLATELET COUNT, AUTOMATED 270 10^3/uL (150-450); RED BLOOD COUNT 3.95 10^6/uL (4.30-6.10)
[2022-06-23 10:26] LABS: WHITE BLOOD COUNT 31.8 10^3/uL (4.0-10.0)
[2022-06-23 10:59] LABS: CALCIUM LEVEL 9.3 MG/DL (8.8-10.2); CREATININE FOR GFR 1.74 MG/DL (0.70-1.30); GLOMERULAR FILTRATION RATE 40.1 (>35); POTASSIUM SERUM 4.7 MEQ/L (3.5-5.1)
[2022-06-23] MEDS ORDERED: PIPERACILLIN/TAZOBACTAM SOD 3.375 GM in D5W MINI-BAG PLUS 50 ML IV SCH (11:00)
[2022-06-23] MEDS: TAMSULOSIN 0.4 MG CAP PO SCH (12:41)
[2022-06-23] MEDS: CEFEPIME HCL 2 GM in D5W MINI-BAG PLUS 50 ML IV SCH ×2 (13:26→14:02)
[2022-06-23] MEDS ORDERED: GLUCAGON INJ 1MG VIAL SC PRN (13:40)
[2022-06-23] MEDS ORDERED: DEXTROSE 50% 50 ML SYRINGE IV PRN (13:40)
[2022-06-23] MEDS ORDERED: GLUCOSE 4GM CHEW TABLET PO PRN (13:40)
[2022-06-23] MEDS: HEPARIN SOD (PORCINE) 5000UNITS/ML 1ML VIAL/SYRINGE SC SCH ×2 (14:03→21:16)
[2022-06-23] MEDS: FLUCONAZOLE 100 MG TAB PO SCH (14:12)
[2022-06-23 18:00] VITALS: BP 129/70
[2022-06-23] MEDS: INSULIN LISPRO (NovoLOG) PER UNIT SC SCH ×2 (18:28→20:56)
[2022-06-23 20:30] VITALS: BP 104/51
[2022-06-23] MEDS ORDERED: NITROFURANTOIN (MACROBID) 100 MG CAP PO SCH (21:00)
[2022-06-23] MEDS ORDERED: oxyBUTYnin 5 MG TAB PO SCH (21:00)
[2022-06-23] MEDS ORDERED: ACETAMINOPHEN TAB 650MG DOSE (2X325MG) PO PRN (21:05)
[2022-06-23] MEDS: LEVEMIR (INSULIN DETEMIR) 1 UNITS/0.01ML SC SCH (21:15)
[2022-06-23] MEDS: CLOPIDOGREL 75 MG TAB PO SCH (21:16)
[2022-06-24] MEDS: CEFEPIME HCL 2 GM in D5W MINI-BAG PLUS 50 ML IV SCH ×2 (01:08→12:48)
[2022-06-24 04:50] VITALS: BP 103/54
[2022-06-24] MEDS: HEPARIN SOD (PORCINE) 5000UNITS/ML 1ML VIAL/SYRINGE SC SCH ×3 (05:42→21:52)
[2022-06-24 06:08] LABS: HEMATOCRIT 31.1 % (42.0-52.0); HEMOGLOBIN 10.3 g/dl (13.5-17.5); MEAN CORPUSCULAR HEMOGLOBIN 29.2 pg (27.0-33.0); MEAN CORPUSCULAR HGB CONC 33.1 g/dl (32.0-36.5); MEAN CORPUSCULAR VOLUME 88.1 fl (80.0-96.0); PLATELET COUNT, AUTOMATED 215 10^3/uL (150-450); RED BLOOD COUNT 3.53 10^6/uL (4.30-6.10); WHITE BLOOD COUNT 17.5 10^3/uL (4.0-10.0)
[2022-06-24 06:37] LABS: CALCIUM LEVEL 8.9 MG/DL (8.8-10.2); CREATININE FOR GFR 1.32 MG/DL (0.70-1.30); GLOMERULAR FILTRATION RATE 55.1 (>35); POTASSIUM SERUM 4.2 MEQ/L (3.5-5.1)
[2022-06-24] MEDS: INSULIN LISPRO (NovoLOG) PER UNIT SC SCH ×4 (07:30→21:00)
[2022-06-24] MEDS: TAMSULOSIN 0.4 MG CAP PO SCH (08:36)
[2022-06-24] MEDS: LEVEMIR (INSULIN DETEMIR) 1 UNITS/0.01ML SC SCH ×2 (08:36→21:53)
[2022-06-24] MEDS: FLUCONAZOLE 100 MG TAB PO SCH (08:36)
[2022-06-24 11:47] VITALS: BP 129/67
[2022-06-24] MEDS: LIDOCAINE 5% (LIDODERM) PATCH TD SCH (12:49)
[2022-06-24 14:00] VITALS: BP 127/68
[2022-06-24 21:00] VITALS: BP 114/77
[2022-06-24] MEDS: CLOPIDOGREL 75 MG TAB PO SCH (21:51)
[2022-06-25] MEDS: CEFEPIME HCL 2 GM in D5W MINI-BAG PLUS 50 ML IV SCH (00:59)
[2022-06-25] MEDS: HEPARIN SOD (PORCINE) 5000UNITS/ML 1ML VIAL/SYRINGE SC SCH (05:20)
[2022-06-25 06:00] VITALS: BP 130/66
[2022-06-25] MEDS: INSULIN LISPRO (NovoLOG) PER UNIT SC SCH (07:30)
[2022-06-25 07:38] LABS: BASO % 0.5 % (0.0-1.0); EOS # 0.1 10^3/uL (0.0-0.5); EOS % 1.5 % (0.0-3.0); HEMATOCRIT 33.5 % (42.0-52.0); HEMOGLOBIN 10.9 g/dl (13.5-17.5); LYMPH # 1.2 10^3/uL (1.5-5.0); LYMPH % 13.8 % (24.0-44.0); MEAN CORPUSCULAR HEMOGLOBIN 29.2 pg (27.0-33.0); MEAN CORPUSCULAR HGB CONC 32.5 g/dl (32.0-36.5); MEAN CORPUSCULAR VOLUME 89.8 fl (80.0-96.0); MONO # 0.8 10^3/uL (0.0-0.8); MONO % 9.8 % (2.0-8.0); NEUTROPHILS # 6.3 10^3/uL (1.5-8.5); NEUTROPHILS % 73.9 % (36.0-66.0); PLATELET COUNT, AUTOMATED 231 10^3/uL (150-450); RED BLOOD COUNT 3.73 10^6/uL (4.30-6.10); WHITE BLOOD COUNT 8.5 10^3/uL (4.0-10.0)
[2022-06-25 08:22] LABS: BLOOD UREA NITROGEN 26 MG/DL (7-18); CALCIUM LEVEL 9.1 MG/DL (8.8-10.2); CARBON DIOXIDE LEVEL 26 MEQ/L (21-32); CHLORIDE LEVEL 105 MEQ/L (98-107); GLOMERULAR FILTRATION RATE > 60.0 (>35); GLUCOSE, FASTING 91 MG/DL (70-100); POTASSIUM SERUM 4.2 MEQ/L (3.5-5.1); SODIUM LEVEL 137 MEQ/L (136-145)
[2022-06-25] MEDS: FLUCONAZOLE 100 MG TAB PO SCH (09:09)
[2022-06-25] MEDS: TAMSULOSIN 0.4 MG CAP PO SCH (09:09)
[2022-06-25] MEDS: LEVEMIR (INSULIN DETEMIR) 1 UNITS/0.01ML SC SCH (09:09)
[2022-06-25] MEDS: LIDOCAINE 5% (LIDODERM) PATCH TD SCH (09:10)
[2022-06-25] MEDS ORDERED: LEVO1TAB39 PO (09:16)
== END 2022-06-25 11:38 | disposition home health service (06) | DRG 698 ==
LOC: M ED 01:49 → EDBD 01:49 → M ED INP 01:50 → OBSVTOIN 10:26 → ENRESERV 16:47 → M MSPAV 18:04
PROVIDERS: ADMIT Internal Medicine; ATTEND Internal Medicine
DX: T83.511A Infection and inflammatory reaction due to indwelling urethral catheter, initial encounter (principal); A41.9 Sepsis, unspecified organism; N39.0 Urinary tract infection, site not specified; E11.51 Type 2 diabetes mellitus with diabetic peripheral angiopathy without gangrene; E11.22 Type 2 diabetes mellitus with diabetic chronic kidney disease; N18.30 Chronic kidney disease, stage 3 unspecified; I12.9 Hypertensive chronic kidney disease with stage 1 through stage 4 chronic kidney disease, or unspecified chronic kidney disease; Z79.899 Other long term (current) drug therapy; Z91.012 Allergy to eggs; Z87.442 Personal history of urinary calculi; Y84.6 Urinary catheterization as the cause of abnormal reaction of the patient, or of later complication, without mention of misadventure at the time of the procedure

== ENCOUNTER 2023-11-30 15:22 | Inpatient (IN) | payer MEDICARE, OTHER ==
[~2023-11-30] VITALS: Ht 188 cm; Wt 70.8 kg
[~2023-11-30 15:22] MED LIST changes: +CEFD1CAP9 PO; -CEFD300C41 PO; +CLOP75TA99 PO; +FLUC10TA PO; +LEVO1TAB39 PO; -OXYB5TAB10 PO; +OXYB5TAB14 PO; +PEN-308 SC; -PEN1MIS21 SC
[2023-11-30 15:59] LABS: BASO % 0.2 % (0.0-1.0); HEMATOCRIT 42.5 % (42.0-52.0); HEMOGLOBIN 14.4 g/dl (13.5-17.5); LYMPH # 0.5 10^3/uL (1.5-5.0); MEAN CORPUSCULAR HEMOGLOBIN 30.3 pg (27.0-33.0); MEAN CORPUSCULAR HGB CONC 33.9 g/dl (32.0-36.5); MEAN CORPUSCULAR VOLUME 89.3 fl (80.0-96.0); MONO # 1.2 10^3/uL (0.0-0.8); MONO % 9.2 % (2.0-8.0); NEUTROPHILS # 11.4 10^3/uL (1.5-8.5); NEUTROPHILS % 86.2 % (36.0-66.0); PLATELET COUNT, AUTOMATED 204 10^3/uL (150-450); RED BLOOD COUNT 4.76 10^6/uL (4.30-6.10); WHITE BLOOD COUNT 13.2 10^3/uL (4.0-10.0)
[2023-11-30 16:25] LABS: BLOOD UREA NITROGEN 22 MG/DL (9-23); CALCIUM LEVEL 8.9 MG/DL (8.3-10.6); CARBON DIOXIDE LEVEL 24 MMOL/L (20-31); CHLORIDE LEVEL 103 MMOL/L (98-107); GLOMERULAR FILTRATION RATE > 60.0 (>35); GLUCOSE, FASTING 183 MG/DL (74-106); MAGNESIUM LEVEL 1.8 MG/DL (1.8-2.4); POTASSIUM SERUM 4.1 MMOL/L (3.5-5.1); SODIUM LEVEL 139 MMOL/L (136-145); THYROID STIMULATING HORMONE 0.968 uIU/ML (0.55-4.78)
[2023-11-30 16:26] LABS: FREE T4 1.15 NG/DL (0.89-1.76)
[2023-11-30 16:28] LABS: CPK CREATINE PHOSPHOKINASE 236 U/L (46-171)
[2023-11-30 18:30] LABS: RSV AMPLIFICATION NEGATIVE (NEGATIVE)
[2023-11-30] MEDS ORDERED: ALEV220T22 PO (21:17)
[2023-11-30] MEDS ORDERED: LOSA25TA13 PO (21:17)
[2023-11-30] MEDS ORDERED: VITA100093 PO (21:17)
[2023-11-30] MEDS ORDERED: METO1TAB32 PO (21:17)
[2023-11-30] MEDS ORDERED: BASA100I SC (21:17)
[2023-11-30] MEDS ORDERED: HOME MED LIST COMPLETE! XX SCH (21:20)
[2023-11-30 21:47] LABS: PROCALCITONIN 0.26 ng/ml
[2023-11-30] MEDS ORDERED: GLUCOSE 4GM CHEW TABLET PO PRN (21:50)
[2023-11-30] MEDS ORDERED: DEXTROSE 50% 50ML SYRINGE IV PRN (21:50)
[2023-11-30] MEDS ORDERED: GLUCAGON INJ 1MG VIAL SC PRN (21:50)
[2023-12-01] MEDS: NS 1,000 ML IV SCH (00:33)
[2023-12-01] MEDS: cefTRIAXone SOD 1 GM in D5W MINI-BAG PLUS 50 ML IV SCH (00:33)
[2023-12-01] MEDS: INSULIN LISPRO (NovoLOG) PER UNIT SC SCH ×2 (00:39→09:04)
[2023-12-01 00:56] VITALS: BP 132/72; TEMP 98.4; O2SAT 94
[2023-12-01 04:24] VITALS: BP 132/74; TEMP 99; O2SAT 95
[2023-12-01 06:22] LABS: BASO # 0.1 10^3/uL (0.0-0.2); BASO % 0.5 % (0.0-1.0); HEMATOCRIT 40.3 % (42.0-52.0); HEMOGLOBIN 13.3 g/dl (13.5-17.5); LYMPH # 1.1 10^3/uL (1.5-5.0); LYMPH % 9.6 % (24.0-44.0); MEAN CORPUSCULAR HEMOGLOBIN 29.5 pg (27.0-33.0); MEAN CORPUSCULAR VOLUME 89.4 fl (80.0-96.0); MONO # 1.4 10^3/uL (0.0-0.8); MONO % 12.9 % (2.0-8.0); NEUTROPHILS # 8.4 10^3/uL (1.5-8.5); NEUTROPHILS % 76.6 % (36.0-66.0); PLATELET COUNT, AUTOMATED 197 10^3/uL (150-450); RED BLOOD COUNT 4.51 10^6/uL (4.30-6.10); WHITE BLOOD COUNT 10.9 10^3/uL (4.0-10.0)
[2023-12-01 06:57] LABS: BLOOD UREA NITROGEN 26 MG/DL (9-23); CARBON DIOXIDE LEVEL 23 MMOL/L (20-31); CHLORIDE LEVEL 108 MMOL/L (98-107); CPK CREATINE PHOSPHOKINASE 170 U/L (46-171); CREATININE FOR GFR 1.08 MG/DL (0.70-1.30); GLOMERULAR FILTRATION RATE > 60.0 (>35); GLUCOSE, FASTING 154 MG/DL (74-106); POTASSIUM SERUM 4.2 MMOL/L (3.5-5.1); SODIUM LEVEL 140 MMOL/L (136-145)
[2023-12-01 08:02] LABS: ALBUMIN 3.1 G/DL (3.2-5.2); ALKALINE PHOSPHATASE 110 U/L (46-116); ALT/SGPT 21 U/L (7.0-40); AST/SGOT 15 U/L (<34); BILIRUBIN,DIRECT 0.4 MG/DL (<0.4); TOTAL PROTEIN 5.4 G/DL (5.7-8.2)
[2023-12-01] MEDS: LIDOCAINE 5% (LIDODERM) PATCH TD SCH (08:58)
[2023-12-01] MEDS: ENOXAPARIN 40MG/0.4ML SYRINGE (J1650 PER 10MG) SC SCH (08:59)
[2023-12-01] MEDS: CALCIUM/VITAMIN D 500 MG TAB PO SCH (08:59)
[2023-12-01] MEDS: VITAMIN D 1,000 INTERNATIONAL UNITS TABLET PO SCH (08:59)
[2023-12-01] MEDS: CLOPIDOGREL 75 MG TAB PO SCH (08:59)
[2023-12-01] MEDS: LOSARTAN 25 MG TAB PO SCH (09:01)
[2023-12-01] MEDS: METOPROLOL SUCC *XL* 25MG TAB (TopROL *XL*) PO SCH (09:02)
[2023-12-01 14:00] VITALS: BP 134/74; TEMP 98.1; O2SAT 95
[2023-12-01 14:38] LABS: CRYSTALS, BODY FLUID NONE SEEN (NONE SEEN); SOURCE, BODY FLUID CRYSTALS LT SHOULDER
[2023-12-01] MEDS: CEFEPIME HCL 2 GM in D5W MINI-BAG PLUS 50 ML IV SCH (15:40)
[2023-12-01 15:50] LABS: SOURCE, BODY FLUID LT SHOULDER; SYNOVIAL FLUID COLOR YELLOW (COLORLESS)
[2023-12-01] MEDS ORDERED: VANCOMYCIN HCL 750 MG, VIAL MATE ADAPTER 1 EACH in D5W 250 ML IV ONE ×2 (16:00→17:00)
[2023-12-01] MEDS: VANCOMYCIN HCL 1,000 MG, VIAL MATE ADAPTER 1 EACH in D5W 250 ML IV ONE (16:57)
[2023-12-01] MEDS: VANCOMYCIN HCL 750 MG, VIAL MATE ADAPTER 1 EACH in D5W 250 ML IV ONE (18:30)
[2023-12-01] MEDS: PERCOCET 5MG/325MG TAB PO PRN (18:55)
[2023-12-01] MEDS ORDERED: PROHANCE 279.3MG/ML 15ML VIAL As Ordered ONE (19:41)
[2023-12-01 21:04] VITALS: BP 131/78; TEMP 99.5; O2SAT 95
[2023-12-01] MEDS: MORPHINE 2 MG/ML 1ML VIAL IV ONE (22:18)
[2023-12-02] VITALS (11 sets, daily range): BP systolic 130–157; BP diastolic 77–95; TEMP 97.3–99.9; O2SAT 91–94
[2023-12-02 06:24] LABS: HEMATOCRIT 37.2 % (42.0-52.0); HEMOGLOBIN 12.7 g/dl (13.5-17.5); MEAN CORPUSCULAR HEMOGLOBIN 29.9 pg (27.0-33.0); MEAN CORPUSCULAR HGB CONC 34.1 g/dl (32.0-36.5); MEAN CORPUSCULAR VOLUME 87.5 fl (80.0-96.0); PLATELET COUNT, AUTOMATED 207 10^3/uL (150-450); RED BLOOD COUNT 4.25 10^6/uL (4.30-6.10); WHITE BLOOD COUNT 9.4 10^3/uL (4.0-10.0)
[2023-12-02 07:06] LABS: VANCOMYCIN RANDOM 7.9 UG/ML
[2023-12-02 07:09] LABS: BLOOD UREA NITROGEN 21 MG/DL (9-23); CALCIUM LEVEL 8.8 MG/DL (8.3-10.6); CARBON DIOXIDE LEVEL 25 MMOL/L (20-31); CHLORIDE LEVEL 106 MMOL/L (98-107); CREATININE FOR GFR 0.92 MG/DL (0.70-1.30); GLOMERULAR FILTRATION RATE > 60.0 (>35); GLUCOSE, FASTING 143 MG/DL (74-106); POTASSIUM SERUM 4.1 MMOL/L (3.5-5.1); SODIUM LEVEL 140 MMOL/L (136-145)
[2023-12-02] MEDS: VANCOMYCIN HCL 750 MG, VIAL MATE ADAPTER 1 EACH in D5W 250 ML IV SCH (07:50)
[2023-12-02] MEDS ORDERED: VANCOMYCIN INTERMITTENT/PULSE DOSING BY CLINICAL PHARMACIST PER DOSING PROTOCOL XX SCH (08:00)
[2023-12-02 08:04] LABS: ERYTHROCYTE SEDIMENTATION RATE 56 mm/hr (0-20)
[2023-12-02] MEDS ORDERED: HYDROMORPHONE HCL 0.5 MG/ 0.5 ML SYRINGE IV PRN ×3 (08:15→11:35)
[2023-12-02] MEDS ORDERED: fentaNYL 100 MCG/2 ML INJECTION As Ordered ONE (09:08)
[2023-12-02] MEDS: fentaNYL 100 MCG/2 ML INJECTION IV ONE (09:13)
[2023-12-02] MEDS: VANCOMYCIN 1000MG/20ML VIAL As Ordered ONE (09:27)
[2023-12-02] MEDS: EPINEPHrine 1MG/ML INJ 30ML MD-VIAL As Ordered ONE (09:28)
[2023-12-02] MEDS ORDERED: LIDOCAINE 2% 100MG/5ML SDV (FOR ANES.) As Ordered ONE (09:29)
[2023-12-02] MEDS ORDERED: ONDANSETRON 4MG 2ML VIAL As Ordered ONE (09:29)
[2023-12-02] MEDS ORDERED: KETOROLAC 60MG 2ML VIAL As Ordered ONE (09:29)
[2023-12-02] MEDS ORDERED: ROCURONIUM BROMIDE 50MG/5ML VIAL As Ordered ONE (09:29)
[2023-12-02] MEDS ORDERED: SUGAMMADEX SODIUM 500 MG/5 ML VIAL (BRIDION) As Ordered ONE (09:29)
[2023-12-02] MEDS ORDERED: propofoL 200 MG/20 ML VIAL As Ordered ONE (09:29)
[2023-12-02] MEDS: TRANEXAMIC ACID 100 MG/ML 10ML VIAL As Ordered ONE (10:01)
[2023-12-02] MEDS ORDERED: ACETAMINOPHEN 1000MG 100ML IV BAG As Ordered ONE (10:48)
[2023-12-02] MEDS: LIDOCAINE 1% SDV 30ML VIAL As Ordered ONE (11:10)
[2023-12-02] MEDS ORDERED: INSULIN LISPRO (NovoLOG) PER UNIT SC PRN (11:35)
[2023-12-02] MEDS ORDERED: oxyCODONE 5MG TAB PO PRN (11:35)
[2023-12-02] MEDS ORDERED: fentaNYL 100 MCG/2 ML INJECTION IV PRN (11:35)
[2023-12-02] MEDS ORDERED: GLUCOSE 4GM CHEW TABLET PO PRN (11:35)
[2023-12-02] MEDS ORDERED: ONDANSETRON 4MG 2ML VIAL IV PRN (11:35)
[2023-12-02] MEDS: LR 1,000 ML IV SCH (11:35)
[2023-12-02] MEDS ORDERED: GLUCAGON INJ 1MG VIAL SC PRN (11:35)
[2023-12-02] MEDS ORDERED: DEXTROSE 50% 50ML SYRINGE IV PRN (11:35)
[2023-12-03 02:00] VITALS: BP 143/66; TEMP 98.6; O2SAT 94
[2023-12-03 05:32] VITALS: BP 135/65; TEMP 97.9; O2SAT 96
[2023-12-03 07:29] LABS: HEMATOCRIT 34.4 % (42.0-52.0); HEMOGLOBIN 11.6 g/dl (13.5-17.5); MEAN CORPUSCULAR HEMOGLOBIN 29.4 pg (27.0-33.0); MEAN CORPUSCULAR HGB CONC 33.7 g/dl (32.0-36.5); MEAN CORPUSCULAR VOLUME 87.3 fl (80.0-96.0); PLATELET COUNT, AUTOMATED 209 10^3/uL (150-450); RED BLOOD COUNT 3.94 10^6/uL (4.30-6.10); WHITE BLOOD COUNT 9.5 10^3/uL (4.0-10.0)
[2023-12-03 07:58] LABS: VANCOMYCIN LEVEL TROUGH 11.4 UG/ML (10.0-20.0)
[2023-12-03 08:06] LABS: BLOOD UREA NITROGEN 32 MG/DL (9-23); CALCIUM LEVEL 9.1 MG/DL (8.3-10.6); CARBON DIOXIDE LEVEL 27 MMOL/L (20-31); CHLORIDE LEVEL 106 MMOL/L (98-107); CREATININE FOR GFR 1.13 MG/DL (0.70-1.30); GLOMERULAR FILTRATION RATE > 60.0 (>35); GLUCOSE, FASTING 219 MG/DL (74-106); POTASSIUM SERUM 4.4 MMOL/L (3.5-5.1); SODIUM LEVEL 138 MMOL/L (136-145)
[2023-12-03] MEDS ORDERED: MIRALAX *UNIT DOSE* 17GM PACKET PO PRN (10:40)
[2023-12-03 14:35] VITALS: BP 163/81; TEMP 97.2; O2SAT 92
[2023-12-03] MEDS: SODIUM CHLORIDE 0.9% INJ 10 ML SYR IV SCH (18:06)
[2023-12-03 20:50] VITALS: BP 164/76; TEMP 99; O2SAT 94
[2023-12-03] MEDS: SODIUM CHLORIDE 0.9% INJ 10 ML SYR IV PRN (21:19)
[2023-12-03] MEDS: LEVEMIR (INSULIN DETEMIR) 1 UNITS/0.01ML SC SCH (21:19)
[2023-12-04 06:13] VITALS: BP 156/62; TEMP 98.4; O2SAT 93
[2023-12-04 06:24] LABS: HEMATOCRIT 36.5 % (42.0-52.0); HEMOGLOBIN 12.1 g/dl (13.5-17.5); MEAN CORPUSCULAR HEMOGLOBIN 29.2 pg (27.0-33.0); MEAN CORPUSCULAR HGB CONC 33.2 g/dl (32.0-36.5); MEAN CORPUSCULAR VOLUME 88.2 fl (80.0-96.0); PLATELET COUNT, AUTOMATED 258 10^3/uL (150-450); RED BLOOD COUNT 4.14 10^6/uL (4.30-6.10); WHITE BLOOD COUNT 9.9 10^3/uL (4.0-10.0)
[2023-12-04 06:43] LABS: BLOOD UREA NITROGEN 25 MG/DL (9-23); CALCIUM LEVEL 8.6 MG/DL (8.3-10.6); CARBON DIOXIDE LEVEL 27 MMOL/L (20-31); CHLORIDE LEVEL 109 MMOL/L (98-107); GLOMERULAR FILTRATION RATE > 60.0 (>35); GLUCOSE, FASTING 119 MG/DL (74-106); SODIUM LEVEL 144 MMOL/L (136-145)
[2023-12-04] MEDS: VANCOMYCIN HCL 750 MG, VIAL MATE ADAPTER 1 EACH in D5W 250 ML IV SCH (08:35)
[2023-12-04] MEDS: MORPHINE 15 MG SA TAB PO ONE (08:48)
[2023-12-04 14:00] VITALS: BP 160/85; TEMP 99; O2SAT 96
[2023-12-04 20:41] VITALS: BP 175/99; TEMP 99.5
[2023-12-05 05:50] VITALS: BP 142/80; TEMP 98.2; O2SAT 94
[2023-12-05 07:11] LABS: HEMATOCRIT 34.8 % (42.0-52.0); HEMOGLOBIN 11.5 g/dl (13.5-17.5); MEAN CORPUSCULAR HEMOGLOBIN 29.5 pg (27.0-33.0); MEAN CORPUSCULAR VOLUME 89.2 fl (80.0-96.0); PLATELET COUNT, AUTOMATED 254 10^3/uL (150-450); WHITE BLOOD COUNT 7.9 10^3/uL (4.0-10.0)
[2023-12-05 07:39] LABS: BLOOD UREA NITROGEN 21 MG/DL (9-23); CALCIUM LEVEL 8.5 MG/DL (8.3-10.6); CARBON DIOXIDE LEVEL 28 MMOL/L (20-31); CHLORIDE LEVEL 105 MMOL/L (98-107); GLOMERULAR FILTRATION RATE > 60.0 (>35); GLUCOSE, FASTING 205 MG/DL (74-106); POTASSIUM SERUM 4.1 MMOL/L (3.5-5.1); SODIUM LEVEL 140 MMOL/L (136-145)
[2023-12-05 09:00] VITALS: BP 144/79
[2023-12-05 14:00] VITALS: BP 145/79; TEMP 98.4; O2SAT 97
[2023-12-05 20:40] VITALS: BP 148/76; TEMP 99.1; O2SAT 98
[2023-12-05] MEDS: ACETAMINOPHEN TAB 650MG DOSE (2X325MG) PO PRN (22:09)
[2023-12-06 05:00] VITALS: BP 125/81; TEMP 98.2; O2SAT 94
[2023-12-06 06:30] LABS: HEMATOCRIT 34.2 % (42.0-52.0); HEMOGLOBIN 11.8 g/dl (13.5-17.5); MEAN CORPUSCULAR HEMOGLOBIN 30.1 pg (27.0-33.0); MEAN CORPUSCULAR HGB CONC 34.5 g/dl (32.0-36.5); MEAN CORPUSCULAR VOLUME 87.2 fl (80.0-96.0); PLATELET COUNT, AUTOMATED 257 10^3/uL (150-450); RED BLOOD COUNT 3.92 10^6/uL (4.30-6.10); WHITE BLOOD COUNT 8.5 10^3/uL (4.0-10.0)
[2023-12-06 06:55] LABS: BLOOD UREA NITROGEN 19 MG/DL (9-23); CALCIUM LEVEL 8.3 MG/DL (8.3-10.6); CARBON DIOXIDE LEVEL 28 MMOL/L (20-31); CHLORIDE LEVEL 105 MMOL/L (98-107); CREATININE FOR GFR 0.97 MG/DL (0.70-1.30); GLOMERULAR FILTRATION RATE > 60.0 (>35); GLUCOSE, FASTING 107 MG/DL (74-106); SODIUM LEVEL 138 MMOL/L (136-145)
[2023-12-06 08:21] LABS: VANCOMYCIN RANDOM 11.5 UG/ML
[2023-12-06 09:27] VITALS: BP 129/83
[2023-12-06] MEDS: VANCOMYCIN HCL 1,000 MG, VIAL MATE ADAPTER 1 EACH in D5W 250 ML IV SCH ×2 (09:29→10:50)
[2023-12-06] MEDS ORDERED: VANC750P6 IV (11:50)
[2023-12-06] MEDS ORDERED: PERCOCET PO ×2 (11:58→16:35)
[2023-12-06 14:00] VITALS: BP 132/82; TEMP 98.6; O2SAT 96
== END 2023-12-06 18:44 | disposition home or self-care (01) | DRG 550 ==
LOC: EDBD 15:22 → M ED 15:22 → M ED INP 23:04 → M MSPAV 12-01 00:58
PROVIDERS: ADMIT Family Medicine; ATTEND Student in an Organized Health Care Education/Training Program
PROC: 0R9K3ZX Drainage of Left Shoulder Joint, Percutaneous Approach, Diagnostic (ICD-10-PCS; 2023-12-02)
PROC: 0R9K4ZZ Drainage of Left Shoulder Joint, Percutaneous Endoscopic Approach (ICD-10-PCS; principal; 2023-12-02 09:15)
DX: M00.9 Pyogenic arthritis, unspecified (principal); I10 Essential (primary) hypertension; I69.349 Monoplegia of lower limb following cerebral infarction affecting unspecified side; E11.621 Type 2 diabetes mellitus with foot ulcer; Z79.4 Long term (current) use of insulin; Z79.899 Other long term (current) drug therapy; M65.112 Other infective (teno)synovitis, left shoulder; Z85.828 Personal history of other malignant neoplasm of skin; L97.519 Non-pressure chronic ulcer of other part of right foot with unspecified severity; M62.81 Muscle weakness (generalized); D72.829 Elevated white blood cell count, unspecified; M51.36 Other intervertebral disc degeneration, lumbar region; Z66 Do not resuscitate; M75.102 Unspecified rotator cuff tear or rupture of left shoulder, not specified as traumatic

== ENCOUNTER → 2023-12-15 | Outpatient (REF) | payer OTHER, MEDICARE ==
[~2023-12-15] MED LIST changes: +ALEV220T22 PO; +BASA100I SC; +LOSA25TA13 PO; +METO1TAB32 PO; +PERCOCET PO; +VANC750P6 IV; +VITA100093 PO
[2023-12-15 12:46] LABS: HEMOGLOBIN 11.7 g/dl (13.5-17.5); MEAN CORPUSCULAR HEMOGLOBIN 29.1 pg (27.0-33.0); MEAN CORPUSCULAR HGB CONC 32.5 g/dl (32.0-36.5); MEAN CORPUSCULAR VOLUME 89.6 fl (80.0-96.0); PLATELET COUNT, AUTOMATED 584 10^3/uL (150-450); RED BLOOD COUNT 4.02 10^6/uL (4.30-6.10); WHITE BLOOD COUNT 9.3 10^3/uL (4.0-10.0)
[2023-12-15 12:56] LABS: ERYTHROCYTE SEDIMENTATION RATE 116 mm/hr (0-20)
[2023-12-15 13:15] LABS: VANCOMYCIN LEVEL TROUGH 12.4 UG/ML (10.0-20.0)
[2023-12-15 13:16] LABS: BLOOD UREA NITROGEN 18 MG/DL (9-23); CALCIUM LEVEL 9.3 MG/DL (8.3-10.6); CARBON DIOXIDE LEVEL 30 MMOL/L (20-31); CHLORIDE LEVEL 99 MMOL/L (98-107); CREATININE FOR GFR 1.08 MG/DL (0.70-1.30); GLOMERULAR FILTRATION RATE > 60.0 (>35); GLUCOSE, FASTING 172 MG/DL (74-106); POTASSIUM SERUM 4.8 MMOL/L (3.5-5.1); SODIUM LEVEL 135 MMOL/L (136-145)
== END ==
LOC: M LAB REF 11:56
PROVIDERS: ATTEND Student in an Organized Health Care Education/Training Program
DX: M00.812 Arthritis due to other bacteria, left shoulder (principal)

== ENCOUNTER → 2023-12-22 | Outpatient (REF) | payer OTHER, MEDICARE ==
[2023-12-22 12:35] LABS: HEMATOCRIT 33.4 % (42.0-52.0); HEMOGLOBIN 11.1 g/dl (13.5-17.5); MEAN CORPUSCULAR HEMOGLOBIN 29.5 pg (27.0-33.0); MEAN CORPUSCULAR HGB CONC 33.2 g/dl (32.0-36.5); MEAN CORPUSCULAR VOLUME 88.8 fl (80.0-96.0); PLATELET COUNT, AUTOMATED 434 10^3/uL (150-450); RED BLOOD COUNT 3.76 10^6/uL (4.30-6.10); WHITE BLOOD COUNT 7.5 10^3/uL (4.0-10.0)
[2023-12-22 12:45] LABS: ERYTHROCYTE SEDIMENTATION RATE 74 mm/hr (0-20)
[2023-12-22 13:00] LABS: VANCOMYCIN LEVEL TROUGH 13.5 UG/ML (10.0-20.0)
[2023-12-22 13:01] LABS: BLOOD UREA NITROGEN 20 MG/DL (9-23); CALCIUM LEVEL 8.6 MG/DL (8.3-10.6); CARBON DIOXIDE LEVEL 29 MMOL/L (20-31); CHLORIDE LEVEL 101 MMOL/L (98-107); CREATININE FOR GFR 1.02 MG/DL (0.70-1.30); GLOMERULAR FILTRATION RATE > 60.0 (>35); GLUCOSE, FASTING 215 MG/DL (74-106); POTASSIUM SERUM 4.6 MMOL/L (3.5-5.1); SODIUM LEVEL 135 MMOL/L (136-145)
== END ==
LOC: M LAB REF 11:10
PROVIDERS: ATTEND Student in an Organized Health Care Education/Training Program
DX: M00.812 Arthritis due to other bacteria, left shoulder (principal)

== ENCOUNTER → 2023-12-29 | Outpatient (REF) | payer OTHER, MEDICARE ==
[2023-12-29 15:23] LABS: HEMATOCRIT 34.6 % (42.0-52.0); HEMOGLOBIN 11.4 g/dl (13.5-17.5); MEAN CORPUSCULAR HEMOGLOBIN 28.9 pg (27.0-33.0); MEAN CORPUSCULAR HGB CONC 32.9 g/dl (32.0-36.5); MEAN CORPUSCULAR VOLUME 87.8 fl (80.0-96.0); PLATELET COUNT, AUTOMATED 375 10^3/uL (150-450); RED BLOOD COUNT 3.94 10^6/uL (4.30-6.10); WHITE BLOOD COUNT 7.9 10^3/uL (4.0-10.0)
[2023-12-29 15:33] LABS: ERYTHROCYTE SEDIMENTATION RATE 44 mm/hr (0-20)
[2023-12-29 15:41] LABS: BLOOD UREA NITROGEN 19 MG/DL (9-23); CALCIUM LEVEL 8.8 MG/DL (8.3-10.6); CARBON DIOXIDE LEVEL 27 MMOL/L (20-31); CHLORIDE LEVEL 102 MMOL/L (98-107); CREATININE FOR GFR 1.05 MG/DL (0.70-1.30); GLOMERULAR FILTRATION RATE > 60.0 (>35); GLUCOSE, FASTING 218 MG/DL (74-106); POTASSIUM SERUM 4.7 MMOL/L (3.5-5.1); SODIUM LEVEL 136 MMOL/L (136-145)
== END ==
LOC: M LAB REF 12:29
PROVIDERS: ATTEND Student in an Organized Health Care Education/Training Program
DX: M00.812 Arthritis due to other bacteria, left shoulder (principal)

== ENCOUNTER → 2023-12-29 | Outpatient (REF) | payer OTHER, MEDICARE ==
[2023-12-30 13:20] LABS: PERCENT SATURATION 22.2 % (19.7-50.0)
[2023-12-30 13:23] LABS: FERRITIN 314.2 NG/ML (10.5-307.3); FOLATE 12.1 NG/ML (>5.4)
== END ==
LOC: M SFHCPLAZ 13:01
PROVIDERS: ATTEND Internal Medicine Infectious Disease
DX: D64.9 Anemia, unspecified (principal); M00.812 Arthritis due to other bacteria, left shoulder

== ENCOUNTER → 2024-01-25 | Outpatient (CLI) | payer OTHER | LOC: M PLAIMG 14:28 | PROVIDERS: ATTEND Urology | DX: N20.0 Calculus of kidney (principal) ==

== ENCOUNTER → 2024-03-13 | Outpatient (CLI) | payer OTHER | LOC: M SOG 14:33 | PROVIDERS: ATTEND Orthopaedic Surgery Hand Surgery | DX: M25.561 Pain in right knee (principal) ==

== ENCOUNTER 2024-10-18 05:53 | Inpatient (IN) | payer MEDICARE, OTHER ==
[~2024-10-18] VITALS: Ht 190.5 cm; Wt 71.5 kg
[2024-10-18 07:00] LABS: BASO # 0.1 10^3/uL (0.0-0.2); BASO % 0.9 % (0.0-1.0); EOS # 0.1 10^3/uL (0.0-0.5); EOS % 0.8 % (0.0-3.0); HEMATOCRIT 39.7 % (42.0-52.0); HEMOGLOBIN 13.1 g/dl (13.5-17.5); LYMPH # 0.9 10^3/uL (1.5-5.0); LYMPH % 12.7 % (24.0-44.0); MEAN CORPUSCULAR HEMOGLOBIN 29.4 pg (27.0-33.0); MONO # 0.6 10^3/uL (0.0-0.8); MONO % 8.6 % (2.0-8.0); NEUTROPHILS # 5.7 10^3/uL (1.5-8.5); NEUTROPHILS % 76.7 % (36.0-66.0); PLATELET COUNT, AUTOMATED 234 10^3/uL (150-450); RED BLOOD COUNT 4.46 10^6/uL (4.30-6.10); WHITE BLOOD COUNT 7.4 10^3/uL (4.0-10.0)
[2024-10-18 07:25] LABS: ALBUMIN 3.6 G/DL (3.2-5.2); BILIRUBIN,TOTAL 0.6 MG/DL (0.3-1.2); CK-MB VALUE MASS 1.3 NG/ML (<3.6); CREATININE FOR GFR 1.26 MG/DL (0.70-1.30); GLOMERULAR FILTRATION RATE 57.9 (>35); MB/CK RELATIVE INDEX 1.88 (< OR =4); POTASSIUM SERUM 4.4 MMOL/L (3.5-5.1); TOTAL PROTEIN 6.2 G/DL (5.7-8.2)
[2024-10-18] MEDS: METOPROLOL SUCC *XL* 25MG TAB (TopROL *XL*) PO ONE (10:12)
[2024-10-18] MEDS: LOSARTAN 25 MG TAB PO ONE (10:12)
[2024-10-18] MEDS ORDERED: ISOVUE-370 76% 100ML VIAL As Ordered ONE (14:08)
[2024-10-18] MEDS: INSULIN LISPRO (NovoLOG) PER UNIT SC SCH ×2 (17:30→20:05)
[2024-10-18] MEDS ORDERED: GLUCOSE 4 GM CHEW PO PRN (17:35)
[2024-10-18] MEDS ORDERED: GLUCAGON INJ 1MG VIAL SC PRN (17:35)
[2024-10-18] MEDS ORDERED: ASPIRIN 325 MG TAB PO SCH (17:35)
[2024-10-18] MEDS ORDERED: DEXTROSE 50% 50ML SYRINGE IV PRN (17:35)
[2024-10-18] MEDS ORDERED: **hydrALAZINE HCL** 25 MG TAB PO PRN (17:35)
[2024-10-18] MEDS: fentaNYL 100 MCG/2 ML INJECTION IV ONE (17:56)
[2024-10-18] MEDS ORDERED: NYST10006 TOP (19:16)
[2024-10-18] MEDS ORDERED: HOME MED LIST COMPLETE! XX SCH (19:20)
[2024-10-18] MEDS: LR 1,000 ML IV ONE (20:33)
[2024-10-18] MEDS: ASPIRIN 81MG ENTERIC TABLET PO SCH (20:33)
[2024-10-18] MEDS: CLOPIDOGREL 75 MG TAB PO SCH (20:33)
[2024-10-18] MEDS: SENOKOT S TAB PO SCH (20:33)
[2024-10-18] MEDS: EZETIMIBE 10MG TABLET (ZETIA) PO SCH (20:33)
[2024-10-19] VITALS (7 sets, daily range): BP systolic 133–164; BP diastolic 63–90; TEMP 97.5–98.4; O2SAT 94–96
[2024-10-19 06:02] LABS: HEMATOCRIT 39.5 % (42.0-52.0); HEMOGLOBIN 13.1 g/dl (13.5-17.5); MEAN CORPUSCULAR HEMOGLOBIN 29.4 pg (27.0-33.0); MEAN CORPUSCULAR HGB CONC 33.2 g/dl (32.0-36.5); MEAN CORPUSCULAR VOLUME 88.8 fl (80.0-96.0); PLATELET COUNT, AUTOMATED 241 10^3/uL (150-450); RED BLOOD COUNT 4.45 10^6/uL (4.30-6.10); WHITE BLOOD COUNT 7.3 10^3/uL (4.0-10.0)
[2024-10-19 06:33] LABS: BLOOD UREA NITROGEN 22 MG/DL (9-23); CALCIUM LEVEL 8.9 MG/DL (8.3-10.6); CARBON DIOXIDE LEVEL 26 MMOL/L (20-31); CHLORIDE LEVEL 105 MMOL/L (98-107); CHOLESTEROL LEVEL 216 MG/DL (<200); CHOLESTEROL RISK RATIO 5.45 (<5); CREATININE FOR GFR 1.19 MG/DL (0.70-1.30); GLOMERULAR FILTRATION RATE > 60.0 (>35); GLUCOSE, FASTING 179 MG/DL (74-106); HDL CHOLESTEROL 39.6 MG/DL (>40); LDL CHOLESTEROL 156.8 MG/DL (<100); NON-HDL-C 176.4 MG/DL; POTASSIUM SERUM 4.4 MMOL/L (3.5-5.1); SODIUM LEVEL 139 MMOL/L (136-145); TRIGLYCERIDES LEVEL 98 MG/DL (<150)
[2024-10-19 08:01] LABS: HEMOGLOBIN A1c 7.7 % (4.0-6.0)
[2024-10-19] MEDS: ENOXAPARIN 40MG/0.4ML SYRINGE (J1650 PER 10MG) SC SCH (08:57)
[2024-10-19] MEDS: MIRALAX *UNIT DOSE* 17GM PACKET PO SCH (08:58)
[2024-10-19] MEDS: METOPROLOL SUCC *XL* 25MG TAB (TopROL *XL*) PO SCH (20:23)
[2024-10-19] MEDS: LanTUS (INSULIN GLARGINE INJ) 1 UNITS/0.01 ML SC SCH (20:23)
[2024-10-20 03:33] VITALS: BP 164/76; TEMP 98.3; O2SAT 96
[2024-10-20] MEDS: LOSARTAN 25 MG TAB PO SCH (08:17)
[2024-10-20 08:27] VITALS: BP 180/92; TEMP 97.6; TEMP 98.3; O2SAT 95; O2SAT 99
[2024-10-20] MEDS: NYSTATIN 100,000 UNITS/GM TOPICAL PWD 15GM TOP SCH (09:00)
[2024-10-20] MEDS: LOSARTAN 25 MG TAB PO ONE (09:25)
[2024-10-20 10:33] VITALS: BP 134/64
[2024-10-20 11:46] VITALS: BP 166/70; TEMP 98.1; O2SAT 96
[2024-10-20 15:56] VITALS: BP 144/73; TEMP 98.1; O2SAT 97
[2024-10-20 19:25] VITALS: BP 146/74; TEMP 98.8; O2SAT 96
[2024-10-20] MEDS: LOSARTAN 50MG TABLET PO SCH (21:29)
[2024-10-21] VITALS: BP 146/74; PULSE 70; TEMP 98.8; O2SAT 96
[2024-10-21 00:08] VITALS: BP 137/69; TEMP 98.3; O2SAT 94
[2024-10-21 04:16] VITALS: BP 124/60; TEMP 98.1; O2SAT 95
[2024-10-21 07:15] VITALS: BP 149/85; TEMP 98.2; O2SAT 95
[2024-10-21 09:38] VITALS: BP 156/90
[2024-10-21 09:42] VITALS: BP 156/90
[2024-10-21] MEDS ORDERED: LOSA100T46 PO (09:53)
[2024-10-21] MEDS ORDERED: EZET10TA21 PO (09:53)
[2024-10-21] MEDS ORDERED: COLA100C5 PO (09:53)
[2024-10-21] MEDS ORDERED: METO1TAB32 PO (09:53)
[2024-10-21] MEDS ORDERED: ASPI81TAEC PO (09:53)
[2024-10-21] MEDS ORDERED: MIRA3350 PO (09:53)
== END 2024-10-21 11:52 | disposition home health service (06) | DRG 66 ==
LOC: M ED 05:53 → M ED INP 17:35 → M PCU 10-19 01:46
PROVIDERS: ADMIT Internal Medicine; ATTEND Internal Medicine
DX: I63.9 Cerebral infarction, unspecified (principal); I10 Essential (primary) hypertension; I69.341 Monoplegia of lower limb following cerebral infarction affecting right dominant side; E11.9 Type 2 diabetes mellitus without complications; I65.22 Occlusion and stenosis of left carotid artery; K59.00 Constipation, unspecified; M21.371 Foot drop, right foot; E55.9 Vitamin D deficiency, unspecified; Z85.828 Personal history of other malignant neoplasm of skin; Z79.4 Long term (current) use of insulin; Z79.899 Other long term (current) drug therapy; Z91.012 Allergy to eggs

== ENCOUNTER → 2025-07-31 | Outpatient (CLI) | payer MEDICARE ==
[~2025-07-31] MED LIST changes: +ASPI81TAEC PO; +COLA100C5 PO; +EZET10TA57 PO; -FLOM0.4C39 PO; +LOSA100T46 PO; +MIRA3350 PO; +NYST10006 TOP; +RED600CA7 PO; -REDCAP3 PO; +TAMS-18 PO; +VANC750P5 IV; -VANC750P6 IV
== END ==
LOC: M RAD 07:33
PROVIDERS: ATTEND Physician Assistant
DX: R68.89 Other general symptoms and signs (principal); R09.89 Other specified symptoms and signs involving the circulatory and respiratory systems

== ENCOUNTER 2025-08-03 09:45 | Emergency (ER) | payer MEDICARE ==
[~2025-08-03] VITALS: Ht 190.5 cm; Wt 73.2 kg
[2025-08-03] MEDS: DERMABOND TOPICAL SKIN ADHESIVE TOP ONE (10:25)
[2025-08-03] MEDS: TETANUS/DIPHTH/ACEL. PERTUSSIS 0.5 ML SYR IM.IMMUN ONE (10:28)
[2025-08-03 10:58] VITALS: BP 165/84; TEMP 97.1; O2SAT 99
== END 2025-08-03 11:11 | disposition home or self-care (01) ==
LOC: M ED 09:45 → EDBD 09:45 → M ED 11:11
DX: S01.81XA Laceration without foreign body of other part of head, initial encounter (principal); S00.03XA Contusion of scalp, initial encounter; W22.09XA Striking against other stationary object, initial encounter; M47.812 Spondylosis without myelopathy or radiculopathy, cervical region; I65.29 Occlusion and stenosis of unspecified carotid artery; I10 Essential (primary) hypertension; E11.9 Type 2 diabetes mellitus without complications; Z79.01 Long term (current) use of anticoagulants; Z91.0120 Allergy to eggs, unspecified; Y92.003 Bedroom of unspecified non-institutional (private) residence as the place of occurrence of the external cause; Y93.89 Activity, other specified; Y99.9 Unspecified external cause status; Z79.82 Long term (current) use of aspirin; Z79.899 Other long term (current) drug therapy; Z23 Encounter for immunization; Z79.4 Long term (current) use of insulin